=== PATIENT | female | born 1945 | race African-American/Black ===

== ENCOUNTER 2022-04-06 01:25 | Emergency (ER) | payer MEDICARE, SELFPAY ==
[2022-04-06] VITALS (20 sets, daily range): BP systolic 104–158; BP diastolic 61–86; PULSE 44–81; RESP 13–20; TEMP 37; O2SAT 97–100
--- NOTE | ~2022-04-06 | US_ITS ---
EXAMINATION: US venous doppler [facility] DATE: 04/06/2022 07:42 INDICATION: Lower limb swelling TECHNIQUE: Grayscale ultrasound images without and with compression and Doppler ultrasound images of the left lower extremity veins were obtained. COMPARISON: None. FINDINGS: The visualized portions of left common femoral vein, profunda (deep) femoral vein, femoral vein, popl iteal vein, posterior tibial veins, gastrocnemius vein and greater saphenous vein outflow are patent. The left peroneal veins were unable be identified likely due to body habitus. IMPRESSION: 1. No deep venous thrombosis in the left lower limb. Reviewed, dictated and finalized at location A.
--- NOTE | 2022-04-06 01:45 | ECG_ITS ---
Measurements Intervals Only Rate: 45 P: VA: 0 QRS: -1 QRSD: 114 T: 19 QT: 454 QTc: 395 Interpretive Statements JUNCTIONAL RHYTHM INTRAVENTRICULAR CONDUCTION DELAY Electronically Signed On 04-06-2022 11:40:00 CDT by Channing Simons M.D.
--- NOTE | 2022-04-06 04:55 | ED.GENADULT ---
HPI - General Adult General Chief complaint: Extremity Problem,Nontraumatic Stated complaint: bilateral extremity edema and pain Time Seen by Provider: 04/06/22 03:38 History of Present Illness HPI narrative: This is a 76-year-old female, with past medical history of diabetes, who presents the emergency department complaining of left leg tenderness and swelling and vaginal bleeding. She states she noted left leg tenderness and swelling yesterday evening. She states this happens off and on and does not know any history of DVT. During transportation from her rehab facility, there was noted vaginal bleeding. Patient states that she has noted bleeding on 1 pad but has not passed clots, felt lightheaded or short of breath. She denies bleeding from anywhere else. She has not had abnormal vaginal bleeding in the past. Related Data Home Medications Medication Instructions Recorded Confirmed albuterol sulfate 90 mcg/actuation inhalation 04/06/22 aerosol inhaler budesonide 160 mcg-glycopyr 9 inh inhalation 04/06/22 mcg-formot 4.8 mcg/actuation HFA inhaler (Calix) capsaicin 0.025 % topical cream applic topical 04/06/22 empagliflozin 25 mg tablet mg 04/06/22 (Jardiance) fluoxetine 60 mg tablet mg 04/06/22 fluticasone propionate 50 intranasal 04/06/22 mcg/actuation nasal spray,suspension gabapentin 300 mg capsule mg 04/06/22 insulin glargine 100 unit/mL (3 unit subcut 04/06/22 mL) subcutaneous pen (Lantus Solostar U-100 Insulin) insulin lispro 100 unit/mL 04/06/22 subcutaneous solution (Humalog U-100 Insulin) montelukast 10 mg tablet mg 04/06/22 nystatin 100,000 unit/gram topical topical 04/06/22 ointment ondansetron 4 mg disintegrating mg 04/06/22 tablet sennosides 8.6 mg-docusate sodium PO 04/06/22 50 mg tablet (Senna-S) simvastatin 40 mg tablet mg 04/06/22 telmisartan 20 mg tablet mg 04/06/22 Allergies Allergy/AdvReac Type Severity Reaction Status Date / Time aspirin Allergy Nausea and Verified 04/06/22 01:45 Vomiting celecoxib Allergy Unknown Verified 04/06/22 01:59 codeine Allergy Unknown Verified 04/06/22 01:59 lisinopril Allergy Unknown Verified 04/06/22 01:59 metformin Allergy Unknown Verified 04/06/22 01:59 Review of Systems Review of Systems: CONSTITUTIONAL: Denies fever, chills, or sweats. EYES: Denies visual changes, redness, or discharge. ENT: Denies rhinorrhea, congestion, sore throat, or otalgia. CARDIOVASCULAR: Denies chest pain, palpitations, or edema. RESPIRATORY: Denies cough or dyspnea. GASTROINTESTINAL: Denies abdominal pain, nausea, vomiting, or diarrhea. GENITOURINARY: Vaginal bleeding denies dysuria or hematuria. SKIN: Denies rash or itching. MUSCULOSKELETAL: Left leg swelling denies back pain, joint pain, or myalgia. NEUROLOGIC: Denies headache, numbness, dizziness, or weakness. PSYCHIATRIC: Denies anxiety or depression. [facility] Past Medical History Medical History (Updated 04/06/22 @ 07:48 by Tyrese Palma MD) No significant past medical history Surgical History Surgical History (Updated 08/22/19 @ 20:28 by Marshall Tafoya) No history of previous surgery Social History Social History (Updated 08/22/19 @ 20:25 by Marshall Tafoya) Smoking status: Unknown if ever smoked Additional living arrangements comments: Pt lives at [facility]. Exam Narrative: GENERAL: Well-appearing, well-nourished, and in no acute distress. HEAD: Normocephalic, atraumatic. EYES: PERRLA and EOMI. ENT: Nares clear, no rhinorrhea or epistaxis. Mucous membranes moist. Oropharynx without tonsillar hypertrophy exudate or other lesions. NECK: Supple. No adenopathy or masses. No carotid bruits or JVD CHEST: Clear to auscultation. No respiratory distress. No wheezes rales or rhonchi HEART: Regular rate and rhythm. No murmur heard. Normal peripheral pulses. ABDOMEN: Soft, nontender, nondistended, normal active bowel cristy
[2022-04-06 05:17] LABS: Basophils Percent Auto 0.4 % (0.2-1.2); Eosinophils Absolute Auto 0.2 K/mm3 (0-0.3); Eosinophils Percent Auto 2.1 % (0-4.4); Hematocrit 33.7 % (37.0-47.0); Hemoglobin 10.3 g/dL (12.0-15.0); Immature Granulocyte Absolute 0.02 K/mm3 (0.00-0.031); Immature Granulocyte Percent A 0.2 % (0-0.5); Lymphocytes Absolute Auto 1.23 K/mm3 (0.9-3.2); Lymphocytes Percent Auto 15.2 % (18.3-44.2); Mean Corpuscular HGB Conc 30.6 g/dl (32-36); Mean Corpuscular Volume 94.9 fl (80-100); Mean Platelet Volume 11.8 fl (7.4-10.4); Monocytes Absolute Auto 0.7 K/mm3 (0.1-0.6); Monocytes Percent Auto 8.3 % (2.6-8.5); Neutrophils Percent Auto 73.8 % (45.5-73.1); Platelet Count Result 163 k/mm3 (150-375); Red Blood Count 3.55 M/mm3 (4.2-5.4); Red Cell Distribution Width 18.9 % (11.5-14.5); White Blood Count 8.1 K/mm3 (4.5-10.0)
[2022-04-06 05:28] LABS: INR 1.2; Prothrombin Time 14.4 Seconds (11.1-14.7)
[2022-04-06 05:29] LABS: Partial Thromboplastin Time 26.8 SECONDS (22.3-36.8)
[2022-04-06 05:57] LABS: Alanine Aminotransferase 19 U/L (6-35); Albumin Level 3.3 g/dL (3.5-5.1); Alkaline Phosphatase 88 U/L (38-126); Anion Gap 6 mmol/L (8-16); Aspartate Amino Transferase 33 U/L (14-36); Bilirubin,Total 0.7 mg/dL (0.2-1.3); Blood Urea Nitrogen 31 mg/dL (7-17); Calcium 8.4 mg/dL (8.4-10.2); Carbon Dioxide 29 mmol/L (22-30); Chloride 104 mmol/L (98-107); Estimated CRCL calculation 39 ml/min; Estimated Glomerular Filt Rate 41; Glucose 114 mg/dL (65-110); Magnesium 2.3 mg/dL (1.6-2.3); Potassium 4.9 mmol/L (3.4-5.0); Sodium 139 mmol/L (137-145)
[2022-04-06 06:02] LABS: D Dimer 3.46 ug/mL (<0.48)
--- NOTE | 2022-04-06 07:26 | PC.NURSE ---
Pt to ultrasound.
--- NOTE | 2022-04-06 09:30 | PC.NURSE ---
Dr. Matamoros at bedside for pelvic exam. Tech Milagros assisting with exam.
--- NOTE | 2022-04-06 09:51 | PC.NURSE ---
Dr. Matamoros at bedside to discuss results and plan with pt and daughter. Pt will follow up with OB tomorrow outpatient.
--- NOTE | 2022-04-06 09:57 | PC.NURSE ---
[facility]. Nurse made aware of results and plan to follow up with OB tomorrow.
--- NOTE | 2022-04-06 10:09 | PC.NURSE ---
Pt's daughter willing to take pt home with help of getting her in car. Pt is oxygen dependent but has no portable oxygen to travel home with. EMS called for transport.
--- NOTE | 2022-04-06 10:37 | PC.NURSE ---
Pt resting on stretcher with call light in reach. Pt awaiting EMS arrival for transport back to rehab facility.
== END 2022-04-06 12:52 ==
PROVIDERS: Preventive Medicine Aerospace Medicine; Emergency Provider Emergency Medicine; PCP Family Medicine
DX: M79.89 Other specified soft tissue disorders (principal); N93.9 Abnormal uterine and vaginal bleeding, unspecified; Z79.4 Long term (current) use of insulin; Z79.899 Other long term (current) drug therapy; I45.9 Conduction disorder, unspecified
CPT/HCPCS: 36415; 80053; 83735; 85025; 85380; 85610; 85730; 86850; 86900; 86901; 93005; 93971; 99284

== ENCOUNTER 2022-04-12 00:26 | Day surgery (SDC) | payer MEDICARE, SELFPAY ==
[2022-04-06 15:13] VITALS: BMI 49.3
--- NOTE | 2022-04-06 15:46 | PC.NURSE ---
PRE-OP INSTRUCTIONS, PLEASE READ CAREFULLY Report to the Outpatient Waiting Room, entrance under the green pavilion located off [facility], at time _1000_ on date _04/12/22_. OR Time: _1200_. - You and your visitor will be asked a series of questions to screen for COVID 19 for your protection. - Only one visitor is allowed at this time. - The patient visitor is requested to leave or wait in car when not with patient. - A mask is required within the hospital. Patients may have clear liquids (water, carbonated beverages, clear teas, apple juice) until 3 hours prior to surgery (0900 AM) with a maximum of 20 ounces. - No food from midnight until time of surgery Take the following medications with a SIP of water the morning of surgery: _FLUOXETINE, BREZTRI INHALER, GABAPENTIN, PAIN MED, ALBUTEROL INHALER & NASAL SPRAY IF NEEDED__HOLD INSULIN AND JARDIANCE AM OF SURGERY Medications to discontinue per physician ____N/A , Date to take last dose Please no make-up, nail marshallese, hairspray, perfume, deodorant, or body powder the day of surgery. No jewelry (including any body piercings) or valuables the day of surgery, leave them at home. Please take a shower or bath the night before, or the morning of, surgery with an antibacterial soap. Wear comfortable, loose fitting clothing. Children are encouraged to wear pajamas. - Jewelry must be removed prior to entering the operating room. Rings and piercings that are not removed may be cut off. - The hospital will not accept responsibility for valuables. - Please leave all valuables, including medications, at home the day of surgery. If you are going home after surgery, a licensed non cdl driver must drive you home. - NO public transportation without another adult. - We recommend that an adult stay with you for 24 hours following discharge. - We also recommend that you do not drive, make important decision, drink alcoholic beverages, or take any drugs that were not prescribed by your health care provider for at least 24 hours after your discharge time. Follow any additional instructions given to you from your surgeon. If you or anyone in your household have experienced Covid symptoms in the past week, please notify your surgeon or the nurse liaison at the phone number below for possible testing. Instructions faxed to _[facility] - ATT: KYLIE Griffin_and asked if any additional questions and then verbalized understanding. Patient advised to call surgeon office or pre surgery nurse liaison [phone] if any additional questions.
[2022-04-12] VITALS (7 sets, daily range): BP systolic 128–150; BP diastolic 58–78; PULSE 55–81; RESP 14–20; TEMP 36.1–36.8; O2SAT 100
--- NOTE | 2022-04-12 06:51 | PM.IMHP ---
H&P: HPI History of Present Illness Date/Time: 04/12/22 06:51 Chief Complaint: Postmenopausal bleed Narrative: A 76-year-old female who [facility]. Was complaining of vaginal bleeding. Her hemoglobin was stable. [facility] Past Medical History Medical History No significant past medical history Surgical History Surgical History No history of previous surgery Social History Social History Smoking status: Former smoker Second hand tobacco smoke exposure: No Additional smoking assessment comments: DAUGHTER STATES PT SMOKED 1PK/DAY/MANY YEARS/QUIT 2017~ Alcohol intake: former Drinks per week: 6 Alcohol use details: DAUGHTER STATES 6 BEERS/WEEK UP UNTIL ENTERING [facility] Substance use: never Living arrangements: other Additional living arrangements comments: [facility] [phone] Spiritual care concerns: No Meds Home Medications and Allergies Home Medications Medication Instructions Recorded Confirmed Type albuterol sulfate 90 mcg/actuation 2 inh inhalation QID PRN Wheezing 04/06/22 04/06/22 History aerosol inhaler budesonide 160 mcg-glycopyr 9 2 inh inhalation BID 04/06/22 04/06/22 History mcg-formot 4.8 mcg/actuation HFA inhaler (Breztri Aerosphere) cholecalciferol (vitamin D3) 1,250 1,250 mcg PO WEEKLY 04/06/22 04/06/22 History mcg (50,000 unit) capsule cholecalciferol (vitamin D3) 50 50 mcg PO DAILY 04/06/22 04/06/22 History mcg (2,000 unit) tablet empagliflozin 25 mg tablet 25 mg QAM 04/06/22 04/06/22 History (Jardiance) fluoxetine 60 mg tablet 60 mg QAM 04/06/22 04/06/22 History fluticasone propionate 50 1 spray intranasal QAM 04/06/22 04/06/22 History mcg/actuation nasal spray,suspension gabapentin 300 mg capsule 300 mg TID 04/06/22 04/06/22 History insulin glargine 100 unit/mL (3 20 unit subcut HS 04/06/22 04/06/22 History mL) subcutaneous pen (Lantus Solostar U-100 Insulin) insulin lispro 100 unit/mL See Rx Instructions .Route .COMPLEX 04/06/22 04/06/22 History subcutaneous solution (Humalog U-100 Insulin) latanoprost 0.005 % eye drops 1 drp EACH EYE QPM 04/06/22 04/06/22 History montelukast 10 mg tablet 10 mg QAM 04/06/22 04/06/22 History nystatin 100,000 unit/gram topical See Rx Instructions .Route .COMPLEX 04/06/22 04/06/22 History ointment ondansetron 4 mg disintegrating 4 mg QID PRN Nausea 04/06/22 04/06/22 History tablet oxycodone 5 mg tablet 5 mg Q6H PRN Pain 04/06/22 04/06/22 History sennosides 8.6 mg-docusate sodium 1 tab-cap PO BID 04/06/22 04/06/22 History 50 mg tablet (Senna-S) simvastatin 40 mg tablet 40 mg HS 04/06/22 04/06/22 History telmisartan 20 mg tablet 20 mg QAM 04/06/22 04/06/22 History Allergies Allergy/AdvReac Type Severity Reaction Status Date / Time aspirin Allergy Nausea and Verified 04/06/22 15:08 Vomiting celecoxib Allergy Unknown Verified 04/06/22 15:08 codeine Allergy N/V Verified 04/06/22 15:08 lisinopril Allergy Unknown Verified 04/06/22 15:08 metformin Allergy Unknown Verified 04/06/22 15:08 acetaminophen [From Tylenol] AdvReac ELEVATED Verified 04/06/22 15:09 LIVER ENZMES Assessment and Plan Assessment and plan (1) Postmenopausal bleeding: Code(s): N95.0 - Postmenopausal bleeding Status: Acute Plan Hysteroscopy/dilatation and curettage
--- NOTE | 2022-04-12 06:53 | WPDHPUPDATE1 ---
History and Physical Update Update Date/Time: 04/12/22 06:53 History and Physical has been reviewed, including an updated exam of the patient. There are NO changes in the patient's condition. Risks, benefits, and alternatives have been discussed and questions answered. Patient agrees to proceed with procedure.
[2022-04-12] MEDS: LACTATED RINGERS 1,000 ML 30 ML IV CONT (11:00)
[2022-04-12 11:53] LABS: Glucose Point of Care 98 mg/dl (65-105)
--- NOTE | 2022-04-12 11:53 | WPDANESEPPF ---
Anes - Initial Pre Proc Eval Procedure: Operation Date: 04/12/22 12:00 Proposed Procedures p Hysteroscopy Dilation and Curettage - Lester Herndon MD Date/Time: 04/12/22 11:53 Surgeon: Lester Herndon MD Pre Op Diagnosis: post menopausal bleeding Patient Data Age: 76 Gender: F Height: 1.68 m Weight: 148.5 kg Last Vital Signs Temp 36.1 C L 04/12/22 10:41 Pulse 55 L 04/12/22 10:41 Resp 20 04/12/22 10:41 BP 140/67 04/12/22 10:41 Pulse Ox 100 04/12/22 10:41 O2 Del Method Nasal Cannula 04/12/22 10:41 O2 Flow Rate 2.5 04/12/22 10:41 Allergies Allergy/AdvReac Type Severity Reaction Status Date / Time aspirin Allergy Nausea and Verified 04/12/22 11:08 Vomiting celecoxib Allergy Unknown Verified 04/12/22 11:08 codeine Allergy N/V Verified 04/12/22 11:08 lisinopril Allergy Unknown Verified 04/12/22 11:08 metformin Allergy Unknown Verified 04/12/22 11:08 acetaminophen [From Tylenol] AdvReac ELEVATED Verified 04/12/22 11:08 LIVER ENZMES Home Medications Medication Instructions Recorded Confirmed Type albuterol sulfate 90 mcg/actuation 2 inh inhalation QID PRN Wheezing 04/06/22 04/12/22 History aerosol inhaler budesonide 160 mcg-glycopyr 9 2 inh inhalation BID 04/06/22 04/12/22 History mcg-formot 4.8 mcg/actuation HFA inhaler (Breztri Aerosphere) cholecalciferol (vitamin D3) 1,250 1,250 mcg PO WEEKLY 04/06/22 04/12/22 History mcg (50,000 unit) capsule cholecalciferol (vitamin D3) 50 50 mcg PO DAILY 04/06/22 04/12/22 History mcg (2,000 unit) tablet empagliflozin 25 mg tablet 25 mg QAM 04/06/22 04/12/22 History (Jardiance) fluoxetine 60 mg tablet 60 mg QAM 04/06/22 04/12/22 History fluticasone propionate 50 1 spray intranasal QAM 04/06/22 04/12/22 History mcg/actuation nasal spray,suspension gabapentin 300 mg capsule 300 mg TID 04/06/22 04/12/22 History insulin glargine 100 unit/mL (3 20 unit subcut HS 04/06/22 04/12/22 History mL) subcutaneous pen (Lantus Solostar U-100 Insulin) insulin lispro 100 unit/mL See Rx Instructions .Route .COMPLEX 04/06/22 04/12/22 History subcutaneous solution (Humalog U-100 Insulin) latanoprost 0.005 % eye drops 1 drp EACH EYE QPM 04/06/22 04/12/22 History montelukast 10 mg tablet 10 mg QAM 04/06/22 04/12/22 History nystatin 100,000 unit/gram topical See Rx Instructions .Route .COMPLEX 04/06/22 04/12/22 History ointment ondansetron 4 mg disintegrating 4 mg QID PRN Nausea 04/06/22 04/12/22 History tablet oxycodone 5 mg tablet 5 mg Q6H PRN Pain 04/06/22 04/12/22 History sennosides 8.6 mg-docusate sodium 1 tab-cap PO BID 04/06/22 04/12/22 History 50 mg tablet (Senna-S) simvastatin 40 mg tablet 40 mg HS 04/06/22 04/12/22 History telmisartan 20 mg tablet 20 mg QAM 04/06/22 04/12/22 History Patient hx anesthesia problems: none Family hx anesthesia problems: none Results Review: All pre-operative results and documents have been reviewed as part of the pre-operative evaluation. [facility] Past Medical History Medical History (Updated 04/12/22 @ 11:54 by Brady Rodriguez MD) COPD (chronic obstructive pulmonary disease) LORENZO (obstructive sleep apnea) Requires oxygen therapy Surgical History Surgical History No history of previous surgery Social History Social History Smoking status: Former smoker Second hand tobacco smoke exposure: No Additional smoking assessment comments: DAUGHTER STATES PT SMOKED 1PK/DAY/MANY YEARS/QUIT 2016~ Alcohol intake: former Drinks per week: 6 Alcohol use details: DAUGHTER STATES 6 BEERS/WEEK UP UNTIL ENTERING [facility] Substance use: never Living arrangements: other Additional living arrangements comments: [facility] [phone] Spiritual care concerns: No Anes - Eval Final
[2022-04-12] MEDS: LIDOCAINE HCL 1% PF 30 ML VIAL INFILTRATE (12:13)
--- NOTE | 2022-04-12 12:29 | W.PM.PROC2 ---
Procedure Note - Detailed Date of Procedure 04/12/22 Pre-op Diagnosis post menopausal bleeding Post-op Diagnosis Other (Uterine polyps) Procedure Performed Hysteroscopy/dilatation curettage/polypectomy Surgeon Lester Herndon MD Anesthesia MAC and Local Indications This 76-year-old fdc patient with postmenopausal bleeding Findings Several clot seen in the uterus making it difficult to see. Some small polyps were noted. Description of Procedure The patient was prepped draped in the normal sterile fashion placed in dorsal lithotomy position. Under excellent IV sedation weighted speculum placed in posterior fornix vagina. Anterior lip of the cervix grasped with a single-tooth tenaculum. 2.5cc of 1% xylocaine anesthesia placed at 2, 4, 8, 10:00 a.m. of the cervix. Uterus sounded to 12cm. Serial dilatation with fragmented dilators performed followed by passage of the 5mm visualizing hysteroscope. Normal saline was used as visualizing medium. There are a lot of clots and blood noted in the uterus and some polypoid lesions. Polyps were grasped with polyp forceps and then the uterus was scraped over the entire 360 G is a until a good grating sound was heard. When no further tissue removed the instruments were withdrawn. The patient tolerated procedure well. All sponge, needle, instrument counts were correct. There were no immediate complications. She did have some irregular heart rate during the procedure but was hemodynamically stable throughout. I explained to her daughter that she would probably be helped by a seeing a smoke control supervisor in the future. Estimated Blood Loss 5 Drains No Packing No Pathology Yes Complications No immediate complications Condition Stable Disposition PACU
[2022-04-12] MEDS: fentaNYL CITRATE INJ (*CRX) 100 MCG/2 ML VIAL 25 MCG IV PUSH ×2 (12:49→12:55)
[2022-04-12 13:00] LABS: Glucose Point of Care 86 mg/dl (65-105)
--- NOTE | 2022-04-12 13:14 | WPDANESPN ---
Anes - Prog Note Post-Op Date/Time: 04/12/22 13:14 Cardiovascular status: normal Respiratory status: normal Airway patency: baseline Mental status: baseline Post-Op hydration status: normal Vital Signs: Last Vital Signs Temp 36.8 C 04/12/22 12:28 Pulse 75 04/12/22 13:00 Resp 14 04/12/22 13:00 BP 141/78 H 04/12/22 13:00 Pulse Ox 100 04/12/22 13:00 O2 Del Method Nasal Cannula 04/12/22 13:00 O2 Flow Rate 2 04/12/22 13:00 Pain Score (VAS): 0 I/O: Intake & Output 04/11/22 04/12/22 04/12/22 23:59 07:59 15:59 Intake Total 50 Balance 50 04/12/22 04/12/22 11:00 12:58 POC Capillary Glucose 98 86 Patient Feedback: Patient satisfied with anesthetic care. Other Findings: Pt. noted to have ventricular pauses intra-op about 3sec. Otherwise stable throughout. D/W Dr. Mcelroy, pt and daughter about need for primary care and cardiac follow-up as out pt.
--- NOTE | 2022-04-12 15:44 | SUR.PHASEII ---
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 per dispatch ambulane is in route. 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 ambulance is due to arrive at 1615 per dispatch
--- NOTE | 2022-04-12 15:47 | SUR.PHASEII ---
1400 pt is ready for discharge sitting in chair daughter in room.
--- NOTE | 2022-04-12 16:56 | SUR.PHASEII ---
1649 [facility] spoke with yon sherman. pt doing ok. 1654 ems left with patient
--- NOTE | 2022-04-12 16:59 | SUR.PHASEII ---
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
== END 2022-04-12 16:55 | disposition home or self-care (01) ==
PROVIDERS: PCP Family Medicine; Visit Provider Obstetrics & Gynecology
PROC: 0U5B8ZZ Destruction of Endometrium, Via Natural or Artificial Opening Endoscopic (ICD-10-PCS; CPT 58563; principal; 2022-04-12 12:00)
DX: N95.0 Postmenopausal bleeding (principal); N84.0 Polyp of corpus uteri; Z79.4 Long term (current) use of insulin; Z79.51 Long term (current) use of inhaled steroids; J44.9 Chronic obstructive pulmonary disease, unspecified; G47.33 Obstructive sleep apnea (adult) (pediatric); Z99.81 Dependence on supplemental oxygen; Z87.891 Personal history of nicotine dependence; E66.01 Morbid (severe) obesity due to excess calories; Z68.43 Body mass index [BMI] 50.0-59.9, adult
CPT/HCPCS: 58558; 82948; 88305; A9270; J2704; J3010; J7030; J7120

== ENCOUNTER 2022-04-14 12:16 | Inpatient (IN) | payer MEDICARE, SELFPAY ==
[2022-04-14] VITALS (54 sets, daily range): BP systolic 93–155; BP diastolic 41–70; PULSE 54–101; RESP 12–29; TEMP 36.3–37.6; O2SAT 95–100; BMI 61.3
--- NOTE | ~2022-04-14 | CT_ITS ---
EXAMINATION: CTA chest PE protocol DATE: 04/14/2022 17:14 INDICATION: Dyspnea w/ elevated d-dimer TECHNIQUE: Computed tomography angiography (CTA) of the chest was performed with 200 mL Omnipaque-350 intravenous contrast timed to evaluate the pulmonary arteries. Coronal maximum intensity projection 3D-reconstructions were created by the technologist. The dose-length product (DLP) was 1816.09 mGy-cm . Automated exposure control and iterative reconstruction technique were employed. COMPARISON: X-ray chest, same date. FINDINGS: Lung parenchyma and airways: Paraseptal emphysematous change. Bibasilar atelectasis/scar. Pleura: Small volume bilateral pleural fluid collections. Thoracic inlet, axillae and chest wall: Left axillary surgical clips. Thoracic aorta: Mild ectasia and arch calcification. Mediastinum: Central pulmonary arterial dilation as can be seen with pulmonary artery hypertension. S ubcentimeter mediastinal and hilar lymph nodes. Moderate hiatal hernia. Heart and pericardium: Cardiomegaly. Coronary artery calcifications: Heavy. Upper abdomen: Prior surgery at the GE junction. Bones: No acute osseous finding. Changes of ankylosing spondylitis. Pulmonary arteries: Study quality: Limited by bolus timing which required repeat injection as well as motion artifact, overall adequate. No pulmonary emboli detected. IMPRESSION: No CT evidence of acute pulmonary embolus. Reviewed, dictated and finalized at location K.
--- NOTE | ~2022-04-14 | XR_ITS ---
EXAMINATION: XR chest 2V DATE: 04/14/2022 13:06 INDICATION: Shortness of breath. TECHNIQUE: Frontal and lateral views of the chest were obtained. COMPARISON: None. FINDINGS: There is mild atelectasis versus scarring in left midlung zone. There is a diffuse intersti tial pattern, consistent with mild pulmonary edema. There are small pleural effusions. No pneumothora x. The heart size is normal. There are surgical clips in left axilla. IMPRESSION: 1. Mild pulmonary edema. 2. Small pleural effusions. 3. Mild atelectasis/scarring in left midlung zone. Reviewed, dictated and finalized at location A.
--- NOTE | ~2022-04-14 | US_ITS ---
US venous doppler [facility] DATE: 04/15/2022 11:01 INDICATION: Bilateral leg pain, swelling TECHNIQUE: Real-time and color flow imaging and Doppler analysis of the veins of the lower extremitie s COMPARISON: None FINDINGS: There is limited visualization of the calf veins due to body habitus. Only one right perone al vein was imaged on the right, left peroneal veins not visualized. Otherwise there is spontaneous and phasic flow and normal augmentation and color flow signal and norm al compression of the deep veins of both lower extremities. IMPRESSION: No deep venous thrombosis of the lower extremities is demonstrated Reviewed, dictated and finalized at Location A. Reviewed, dictated and finalized at location B.
--- NOTE | 2022-04-14 12:38 | ECG_ITS ---
Measurements Intervals [place] Rate: 67 P: 42 AK: 189 QRS: 1 QRSD: 89 T: 36 QT: 382 QTc: 404 Interpretive Statements SINUS RHYTHM WITH OCCASIONAL ECTOPIC PREMATURE COMPLEXES LOW QRS VOLTAGE [QRS DEFLECTION < 0.5/1.0 mV IN LIMB/CHEST LEADS] COMPARED TO ECG 04/06/2022 01:50:05 THE PATIENT IS NO LONGER IN A JUNCTIONAL RHYTHM Electronically Signed On 04-14-2022 18:36:34 CDT by Ena Simmons M.D.
[2022-04-14 12:54] LABS: Basophils Percent Auto 0.5 % (0.2-1.2); Eosinophils Absolute Auto 0.1 K/mm3 (0-0.3); Eosinophils Percent Auto 0.8 % (0-4.4); Hematocrit 34.2 % (37.0-47.0); Hemoglobin 10.3 g/dL (12.0-15.0); Immature Granulocyte Absolute 0.03 K/mm3 (0.00-0.031); Immature Granulocyte Percent A 0.5 % (0-0.5); Lymphocytes Absolute Auto 1.71 K/mm3 (0.9-3.2); Lymphocytes Percent Auto 27.4 % (18.3-44.2); Mean Corpuscular HGB Conc 30.1 g/dl (32-36); Mean Corpuscular Hemoglobin 28.5 pg (26-34); Mean Corpuscular Volume 94.5 fl (80-100); Mean Platelet Volume 11.2 fl (7.4-10.4); Monocytes Absolute Auto 0.7 K/mm3 (0.1-0.6); Monocytes Percent Auto 11.9 % (2.6-8.5); Neutrophils Absolute Auto 3.7 K/mm3 (1.3-6.7); Neutrophils Percent Auto 58.9 % (45.5-73.1); Nucleated Red Blood Cells Perc 0.3 % (0.0-0.2); Platelet Count Result 234 k/mm3 (150-375); Red Blood Count 3.62 M/mm3 (4.2-5.4); Red Cell Distribution Width 18.9 % (11.5-14.5); White Blood Count 6.2 K/mm3 (4.5-10.0)
[2022-04-14 13:11] LABS: Alanine Aminotransferase 18 U/L (6-35); Albumin Level 3.2 g/dL (3.5-5.1); Alkaline Phosphatase 80 U/L (38-126); Anion Gap 6 mmol/L (8-16); Aspartate Amino Transferase 41 U/L (14-36); Bilirubin,Total 0.5 mg/dL (0.2-1.3); Blood Urea Nitrogen 23 mg/dL (7-17); Calcium 8.5 mg/dL (8.4-10.2); Carbon Dioxide 26 mmol/L (22-30); Chloride 103 mmol/L (98-107); Estimated CRCL calculation 41 ml/min; Estimated Glomerular Filt Rate 41; Glucose 120 mg/dL (65-110); Potassium 5.4 mmol/L (3.4-5.0); Sodium 135 mmol/L (137-145)
[2022-04-14 14:49] LABS: NT Pro B Type Natriuretic Pept 799 pg/mL (5-100)
[2022-04-14] MEDS: INSULIN HUMAN REGULAR (*BKC) 100 UNITS/ML 10 UNITS IV PUSH (14:49)
[2022-04-14] MEDS: DEXTROSE 50% 25 GM/50 ML SYRINGE IV PUSH (14:49)
[2022-04-14 14:54] LABS: Troponin I 0.061 ng/mL (0.000-0.034)
[2022-04-14 14:55] LABS: Glucose Point of Care 96 mg/dl (65-105)
[2022-04-14 15:35] LABS: Glucose Point of Care 114 mg/dl (65-105)
[2022-04-14 15:42] LABS: SARS-CoV-2 RNA PCR Positive
[2022-04-14] MEDS: CLOPIDOGREL BISULFATE 300 MG TABLET PO (15:50)
--- NOTE | 2022-04-14 16:00 | PC.NURSE ---
Lokelar instructions not to administer within two hours of other PO medications. Pt also had PO plavix ordered. Dr. Layne made aware; ordered to give plavix at this time over [facility].
[2022-04-14 16:25] LABS: D Dimer 6.31 ug/mL (<0.48)
--- NOTE | 2022-04-14 16:40 | PC.NURSE ---
Dr. Layne at bedside to discuss results and treatment plan with pt.
[2022-04-14 17:51] LABS: Troponin I 0.071 ng/mL (0.000-0.034)
--- NOTE | 2022-04-14 18:16 | PC.NURSE ---
Pt's daughter updated.
[2022-04-14] MEDS: SODIUM ZIRCONIUM CYCLOSILICATE 10 GM POWD.PACK PO (18:41)
--- NOTE | 2022-04-14 20:12 | ED.GENADULT ---
HPI - General Adult General Chief complaint: Shortness of Breath/Dyspnea Stated complaint: SOB Time Seen by Provider: 04/14/22 13:02 History of Present Illness HPI narrative: This is a 76-year-old female presenting to ED with shortness of breath. Patient recently had a D&C on 04/12. Since then she has felt weak, tired and has a productive cough. Patient typically seen with a walker has been too weak to stand. She is currently living at a rehab facility. The patient has been vaccinated against COVID-19. She denies fever, chills. She notes she has lower extremity edema which is normal for her. Patient has been compliant with all of her medi Related Data Home Medications Medication Instructions Recorded Confirmed albuterol sulfate 90 mcg/actuation 2 inh inhalation QID PRN Wheezing 04/06/22 04/12/22 aerosol inhaler budesonide 160 mcg-glycopyr 9 2 inh inhalation BID 04/06/22 04/12/22 mcg-formot 4.8 mcg/actuation HFA inhaler (Breztri SIMIphere) cholecalciferol (vitamin D3) 1,250 1,250 mcg PO WEEKLY 04/06/22 04/12/22 mcg (50,000 unit) capsule cholecalciferol (vitamin D3) 50 50 mcg PO DAILY 04/06/22 04/12/22 mcg (2,000 unit) tablet empagliflozin 25 mg tablet 25 mg QAM 04/06/22 04/12/22 (Jardiance) fluoxetine 60 mg tablet 60 mg QAM 04/06/22 04/12/22 fluticasone propionate 50 1 spray intranasal QA 04/06/22 04/12/22 mcg/actuation nasal spray,suspension gabapentin 300 mg capsule 300 mg TID 04/06/22 04/12/22 insulin glargine 100 unit/mL (3 20 unit subcut HS 04/06/22 04/12/22 mL) subcutaneous pen (Lantus Solostar U-100 Insulin) insulin lispro 100 unit/mL See Rx Instructions .Route .COMPLEX 04/06/22 04/12/22 subcutaneous solution (Humalog U-100 Insulin) latanoprost 0.005 % eye drops 1 drp EACH EYE QPM 04/06/22 04/12/22 montelukast 10 mg tablet 10 mg QAM 04/06/22 04/12/22 nystatin 100,000 unit/gram topical See Rx Instructions .Route .COMPLEX 04/06/22 04/12/22 ointment ondansetron 4 mg disintegrating 4 mg QID PRN Nausea 04/06/22 04/12/22 tablet oxycodone 5 mg tablet 5 mg Q6H PRN Pain 04/06/22 04/12/22 sennosides 8.6 mg-docusate sodium 1 tab-cap PO BID 04/06/22 04/12/22 50 mg tablet (Senna-S) simvastatin 40 mg tablet 40 mg HS 04/06/22 04/12/22 telmisartan 20 mg tablet 20 mg QAM 04/06/22 04/12/22 Lasix 20 mg 04/14/22 capsaicin 0.025 % topical cream applic topical 04/14/22 colchicine 0.6 mg tablet mg 04/14/22 insulin glargine 100 unit/mL (3 unit subcut 04/14/22 mL) subcutaneous pen (Lantus Solostar U-100 Insulin) potassium chloride 10 mEq meq PO 04/14/22 tablet,extended release(part/cryst) prednisone 10 mg tablet 30 mg 04/14/22 telmisartan 20 mg tablet mg 04/14/22 Allergies Allergy/AdvReac Type Severity Reaction Status Date / Time aspirin Allergy Nausea and Verified 04/14/22 12:44 Vomiting celecoxib Allergy Unknown Verified 04/14/22 12:44 codeine Allergy N/V Verified 04/14/22 12:44 lisinopril Allergy Unknown Verified 04/14/22 12:44 metformin Allergy Unknown Verified 04/14/22 12:44 acetaminophen [From Tylenol] AdvReac ELEVATED Verified 04/14/22 12:44 LIVER ENZMES Review of Systems Review of Systems: CONSTITUTIONAL: Denies night sweats. EYES: No eye pain ENT: Denies rhinorrhea CARDIOVASCULAR: Denies palpitations RESPIRATORY: Denies hemoptysis GASTROINTESTINAL: Denies hematemesis GENITOURINARY: Denies hematuria. SKIN: Denies rash MUSCULOSKELETAL: Denies myalgia. NEUROLOGIC: Denies weakness. PSYCHIATRIC: Denies delusions PMFSH Past Medical History Medical History COPD (chronic obstructive pulmonary disease) Obesity LORENZO (obstructive sleep apnea) Requires oxygen therapy Surgical History Surgical History (Updated 04/14/22 @ 20:14 by Saqib Layne MD) H/O dilation and curettage No history of previous surgery Social History Social History (Reviewed 04/14/22 @ 20:14 by Saqib Burr
--- NOTE | 2022-04-14 20:34 | PM.IMHP ---
H&P: HPI History of Present Illness Date/Time: 04/14/22 20:34 Chief Complaint: Shortness of breath Narrative: this is a 76-year-old female patient who resides at [facility] previously known as [facility]. the patient has a history of COPD and chronically wears oxygen at 2 L per nasal cannula. The patient recently had a D and C on 04/12/2022 for postmenopausal hemorrhage and was found to have polyps. The patient stated she is currently staying at the assisted for rehab. The patient has been vaccinated against COVID-19. The patient typically uses a walker and she has been too weak to stand. She does have increased swelling in the lower extremities and denies any history of CHF. Her H&H is 10.3 and 34.2 with no current H&H to compare with this value. Potassium is 5.4. Sodium is 135. D-dimer 6.31. Troponin 0.061 and 0.071. BNP 799. the patient was positive for COVID Chest CT no CT evidence of acute pulmonary embolus. Chest x-ray was read as mild pulmonary edema. Small pleural effusions. Mild atelectasis / scarring and left midlung zone. The patient was given D50, regular insulin and lokema for the hyperkalemia. She was also given Plavix because of the elevated troponin. The patient denies any chest pain at this time. The patient recently had venous Dopplers on 04/06/2022 which showed no deep vein thrombosis in the left lower limb. The patient is being admitted to inpatient services on the date of service of 04/14/2022. Review of Systems Review of Systems: See HPI All systems reviewed & are unremarkable except as noted in HPI and below Constitutional: Constitutional: Reports as per HPI and Reports no additional constitutional complaints Eyes: Eyes: Reports as per HPI and Reports no additional eye complaints ENT: Reports system reviewed and no additional complaints, except as documented and Reports Normal hearing present Cardiovascular: Cardiovascular: Reports no additional cardiovascular complaints Respiratory: Respiratory: Reports no additional respiratory complaints and Reports no additional respiratory complaints Gastrointestinal: Gastrointestinal: Reports as per HPI and Reports no additional gastrointestinal complaints Musculoskeletal: Musculoskeletal: Reports no additional musculoskeletal complaints Integumentary/Breasts: Skin/Breast: Reports system reviewed and no additional complaints, except as docu and Reports as per HPI Neurologic: Reports system reviewed and no additional complaints, except as documented, Reports as per HPI and Reports Normal hearing present Psychiatric: Psychiatric: Reports no additional psychiatric complaints and Reports as per HPI Endocrine: Endocrine: Reports no additional endocrine complaints Hematologic/Lymphatic: Hematologic/Lymphatic: Reports no additional hematologic/lymphatic complaints Allergic/Immunologic: Allergic/Immunologic: Reports no additional allergic/immunologic complaints [facility] Past Medical History Medical History (Updated 04/14/22 @ 21:33 by Margaret Calderon NP) COPD (chronic obstructive pulmonary disease) CRF (chronic renal failure) DM2 (diabetes mellitus, type 2) Glaucoma Gout HTN (hypertension), malignant Hyperlipidemia Neuropathy Obesity LORENZO (obstructive sleep apnea) Requires oxygen therapy Surgical History Surgical History (Updated 04/14/22 @ 20:38 by Margaret Calderon NP) Cataract extraction status H/O dilation and curettage History of section, classical Total knee replacement status edmund Family History Family History (Updated 04/14/22 @ 20:40 by Margaret Calderon NP) Mother Kidney failure Hypertension Heart disease Acute myocardial infarction Father Hypertension Sibling Diabetes mellitus Social History Social History (Updated 04/14/22 @ 21:35 by Margaret Calderon NP) Social History: she is . She had 2 daughters but 1 daughter was murdered at the age of 34 by her Own . the
--- NOTE | 2022-04-14 21:18 | PC.NURSE ---
Pts son in law called. RN asked to if daughter in law was avaliable to speak as well due to pts son in law not being on HIPPA contact list. PTs daughter on speaker phone with son in law. Son in law stated I am trying to stay calm here. I am unhappy. Stated he knows Calvin Fernandez [employer] SUPER[employer] and CNO Corina Contreras and that he spoke with Calvin earlier and was assured that they would get excellent care. Pts son in law states he is going to call Calvin soon if pt does not get a bed and get something to drink. RN explained to pts son in law and daughter that she had asked about getting the patient a bed but was waiting to hear from house player. RN explained to family that pt is covid positive and at times this can take time to get a private room. RN also explained she was unaware that the patient needed something to drink, but would go in there and get her something. Pts son in law and daughter verbalized understanding. RN went directly into pts room and explained call light to patient to call out if needed. Pt verbalized understanding.
--- NOTE | 2022-04-14 21:38 | ADMGEN ---
This patient, Mary Lou Santo, was admitted to IMU Room 211-01 at 2135. Patient/family oriented to hospital policies and general routines including ID bracelet, bed and alarms, visiting hours, pain management, procedures, bathroom and other care routines, personal items, smoking policy, room service/diet, and visiting hours. Information on how to activate the Rapid Response Team has been discussed. Patient/Family are encouraged to report perceived risks to care and to ask questions if they do not understand what they are told or what they should do.
[2022-04-14 22:46] LABS: Basophils Percent Auto 0.5 % (0.2-1.2); Eosinophils Absolute Auto 0.1 K/mm3 (0-0.3); Eosinophils Percent Auto 0.9 % (0-4.4); Hematocrit 33.1 % (37.0-47.0); Immature Granulocyte Absolute 0.02 K/mm3 (0.00-0.031); Immature Granulocyte Percent A 0.3 % (0-0.5); Lymphocytes Absolute Auto 1.86 K/mm3 (0.9-3.2); Mean Corpuscular HGB Conc 30.2 g/dl (32-36); Mean Corpuscular Hemoglobin 28.6 pg (26-34); Mean Corpuscular Volume 94.6 fl (80-100); Monocytes Percent Auto 17.7 % (2.6-8.5); Neutrophils Absolute Auto 2.8 K/mm3 (1.3-6.7); Neutrophils Percent Auto 48.6 % (45.5-73.1); Platelet Count Result 230 k/mm3 (150-375); Red Cell Distribution Width 18.8 % (11.5-14.5); White Blood Count 5.8 K/mm3 (4.5-10.0)
[2022-04-14 22:57] LABS: INR 1.2; Prothrombin Time 14.8 Seconds (11.1-14.7)
[2022-04-14 23:00] LABS: Alanine Aminotransferase 15 U/L (6-35); Anion Gap 2 mmol/L (8-16); Aspartate Amino Transferase 40 U/L (14-36); Blood Urea Nitrogen 22 mg/dL (7-17); Calcium 8.3 mg/dL (8.4-10.2); Carbon Dioxide 29 mmol/L (22-30); Chloride 103 mmol/L (98-107); Estimated CRCL calculation 41 ml/min; Estimated Glomerular Filt Rate 41; Glucose 110 mg/dL (65-110); Potassium 4.5 mmol/L (3.4-5.0); Sodium 134 mmol/L (137-145)
[2022-04-14] MEDS: BARICITINIB 2 MG TABLET PO (23:00)
[2022-04-15] VITALS (13 sets, daily range): BP systolic 128–149; BP diastolic 60–75; PULSE 57–80; RESP 16–24; TEMP 36.1–36.9; O2SAT 90–100
--- NOTE | 2022-04-15 | ECHO_ITS ---
Patient Info Name: Mary Lou Satno Age: 76 years : 1945 Gender: Female Ht: 64 in Wt: 333 lbs BSA: 2.71 m2 HR: 66 bpm BP: 128 / 70 mmHg Heart Rhythm: Sinus Rhythm Exam Date: 04/15/2022 11:44 AM Exam Location: [facility] Patient Status: Outpatient Admit Date: 04/14/2022 Staff Ordering Physician: Margaret Calderon NP Room Service Server: Marshall Lucas, SAHIL, RT Attending Provider: Bret Martin MD Referring Physician: Kvng SAGE; Exam Type: CA echo doppler color flow Study Info Indications R60.0 - Localized edema Complete two-dimensional, color flow and Doppler transthoracic echocardiogram is performed. Summary 1. Complete two-dimensional, color flow and Doppler transthoracic echocardiogram is performed. 2. Normal left ventricular size with mild concentric hypertrophy. Good systolic function of all segments. Estimated ejection fraction visually is 55-60%, 50% calculated. Grade 2 diastolic dysfunction is present. 3. Global longitudinal strain is-13%, moderately decreased, consistent with a degree of systolic dysfunction. 4. Mild left atrial enlargement. 5. No significant valve disease. 6. Normal sinus rhythm. 7. Technically difficult study due to body habitus. Left Ventricle Left ventricular chamber dimension is normal. Left ventricular systolic function is normal, estimated at 55-60%. There is mildly increased left ventricular wall thickness. Left ventricular septal wall motion is normal. The left ventricular diastolic function is grade II diastolic dysfunction. Global longitudinal strain is moderately elevated at -13 %. Right Ventricle Right ventricular chamber dimension is normal. Right ventricular systolic function is normal. Left Atria Left atrial chamber dimension is mildly enlarged. Right Atria Right atrial chamber dimension is normal. Aortic Valve The aortic valve is trileaflet. There is no aortic valve sclerosis. There is no aortic valve stenosis. There is no aortic valve regurgitation. Pulmonic Valve The pulmonic valve is normal. There is no pulmonic valve stenosis. There is trace pulmonic regurgitation. Mitral Valve The mitral valve has normal leaflets. There is no mitral valve stenosis. There is trace mitral valve regurgitation. Tricuspid Valve The tricuspid valve leaflets are normal. There is no significant tricuspid valve stenosis. There is no tricuspid valve regurgitation. No pulmonary hypertension, estimated pulmonary arterial systolic pressure is Empty. Pericardium/Pleural The pericardium appears normal. There is no pericardial effusion. Inferior Vena Cava Normal inferior vena cava with >50% collapse upon inspiration consistent with Empty right atrial pressure, Empty. Aorta The aortic root size at the sinus of Valsalva is borderline dilated. The prox ascending aorta size is normal. Left Ventricular Outflow Tract Name Value Normal LVOT 2D LVOT Diameter 2.1 cm LVOT Doppler LVOT Peak Gradient 5 mmHg LVOT Mean Gradient 3 mmHg LVOT VTI 28
[2022-04-15 06:19] LABS: Basophils Percent Auto 0.7 % (0.2-1.2); Hematocrit 35.6 % (37.0-47.0); Hemoglobin 10.7 g/dL (12.0-15.0); Immature Granulocyte Absolute 0.02 K/mm3 (0.00-0.031); Immature Granulocyte Percent A 0.5 % (0-0.5); Lymphocytes Percent Auto 32.2 % (18.3-44.2); Mean Corpuscular HGB Conc 30.1 g/dl (32-36); Mean Corpuscular Hemoglobin 28.8 pg (26-34); Mean Platelet Volume 11.2 fl (7.4-10.4); Monocytes Absolute Auto 0.1 K/mm3 (0.1-0.6); Monocytes Percent Auto 3.2 % (2.6-8.5); Neutrophils Absolute Auto 2.6 K/mm3 (1.3-6.7); Neutrophils Percent Auto 63.4 % (45.5-73.1); Platelet Count Result 240 k/mm3 (150-375); Red Blood Count 3.71 M/mm3 (4.2-5.4); Red Cell Distribution Width 19.1 % (11.5-14.5)
[2022-04-15 06:29] LABS: Hemoglobin A1C 6.3 % (<5.7)
[2022-04-15 06:34] LABS: INR 1.1; Prothrombin Time 14.1 Seconds (11.1-14.7)
[2022-04-15 06:39] LABS: Alanine Aminotransferase 17 U/L (6-35); Albumin Level 3.1 g/dL (3.5-5.1); Alkaline Phosphatase 79 U/L (38-126); Anion Gap 7 mmol/L (8-16); Aspartate Amino Transferase 40 U/L (14-36); Bilirubin,Total 0.6 mg/dL (0.2-1.3); Blood Urea Nitrogen 21 mg/dL (7-17); Calcium 8.5 mg/dL (8.4-10.2); Carbon Dioxide 24 mmol/L (22-30); Chloride 105 mmol/L (98-107); Estimated CRCL calculation 48 ml/min; Estimated Glomerular Filt Rate 48; Glucose 132 mg/dL (65-110); Potassium 5.6 mmol/L (3.4-5.0); Sodium 136 mmol/L (137-145)
[2022-04-15 08:12] LABS: Glucose Point of Care 136 mg/dl (65-105)
[2022-04-15] MEDS: BARICITINIB 2 MG TABLET PO (09:37)
[2022-04-15] MEDS: ENOXAPARIN 40 MG/0.4 ML SYRINGE SUB-Q (09:37)
[2022-04-15 12:40] LABS: Glucose Point of Care 118 mg/dl (65-105)
--- NOTE | 2022-04-15 13:01 | PM.IMPN ---
Progress Note: A&P Assessment and Plan (1) COVID: Code(s): U07.1 - COVID-19 Status: Acute Assessment and Plan: - patient is chronically on oxygen at 2 L at home for her COPD. - She was started on Decadron. - Since she is on her home oxygen level I started her on olumiant and have not started her on remdesivir. - Continue with droplet and contact isolation (2) COPD (chronic obstructive pulmonary disease): Code(s): J44.9 - Chronic obstructive pulmonary disease, unspecified Status: Acute Assessment and Plan: - albuterol inhaler - home inhalers once her meds have been verified - continue with Singulair once her homes medications are verified - she was started on Decadron (3) DM2 (diabetes mellitus, type 2): Code(s): E11.9 - Type 2 diabetes mellitus without complications Status: Acute Assessment and Plan: Monitor blood sugar continue insulin. (4) HTN (hypertension), malignant: Code(s): I10 - Essential (primary) hypertension Status: Chronic Assessment and Plan: - her blood pressure is low tonight so I am holding her anti hypertensive medications stent (5) Hyperkalemia: Code(s): E87.5 - Hyperkalemia Status: Acute Assessment and Plan: - the patient was treated as per hyperkalemia protocol and I will recheck her BMP tonight - daily BMP - patient is also on Lasix -monitor (6) Hyperlipidemia: Code(s): E78.5 - Hyperlipidemia, unspecified Status: Acute Assessment and Plan: - continue simvastatin (7) Neuropathy: Code(s): G62.9 - Polyneuropathy, unspecified Status: Acute Assessment and Plan: - continue with gabapentin (8) Gout: Code(s): M10.9 - Gout, unspecified Status: Acute Assessment and Plan: continue with home medication. Patient stated she is that she tries to control with diet she tries to avoid cheese and no longer drinks beer (9) CRF (chronic renal failure): Code(s): N18.9 - Chronic kidney disease, unspecified Status: Acute Assessment and Plan: patient is at her baseline. (10) Glaucoma: Code(s): H40.9 - Unspecified glaucoma Status: Acute Assessment and Plan: Continue with home eye drops (11) Elevated troponin: Code(s): R77.8 - Other specified abnormalities of plasma proteins Status: Acute Assessment and Plan: patient has no complaints of any chest pain. troponin levels are pretty flat could be related to her renal status (12) Generalized weakness: Code(s): R53.1 - Weakness Status: Acute Assessment and Plan: - patient is in a rehab facility. - May consider PT OT before she goes back to rehab facility. Subjective Date/time seen: 04/15/22 13:01 Currently on 2-3 L nasal cannula. Patient is on 2liters at home. Appears to be doing fine from respiratory status Exam Const: General: cooperative, comfortable, no acute distress, well developed, awake, Physically active and ill appearing Nutritional Appearance: obese and edematous Orientation/consciousness: oriented to person, oriented to place, oriented to time and patient oriented x3 Limitations: no limitations HENMT: Head: normal to inspection, No palpable skull fracture present, normocephalic and atraumatic Ears: hearing grossly normal bilaterally and external ears normal General nose exam: Normal external nose present and Normal nares present Eyes: General: appearance normal, both eyes and all related structures Alignment and Position: alignment normal Periorbital: periorbital findings normal Eyelids: eyelids normal Sclera: sclerae normal Pupils: Equal, round and reactive pupils present EOM: EOMs intact bilaterally Neck: Neck: normal visual inspection, full ROM, trachea midline and supple Chest: Chest palpation & inspection: normal inspection of the chest Resp: Effort & Inspection: normal respiratory effort Aus
[2022-04-15 17:46] LABS: Glucose Point of Care 152 mg/dl (65-105)
--- NOTE | 2022-04-15 20:55 | PC.NURSE ---
This patient, Mary Lou Santo, was transferred to [240 ] on 04/15/22 at 2055. Personal belongings sent with patient. Report given to [asif marvin ]. Appropriate documentation sent with patient.
[2022-04-15] MEDS: INSULIN GLARGINE (*BKC) 100 UNITS/ML 20 UNITS SUB-Q (22:53)
[2022-04-15] MEDS: GABAPENTIN 300 MG CAPSULE PO (22:53)
[2022-04-15] MEDS: SIMVASTATIN 20 MG TABLET 40 MG PO (22:53)
[2022-04-15] MEDS: LATANOPROST 0.005% OP SOLN 2.5 ML BTL 1 DROP EACH EYE (22:53)
[2022-04-15 23:16] LABS: Glucose Point of Care 119 mg/dl (65-105)
[2022-04-16] VITALS (12 sets, daily range): BP systolic 132–156; BP diastolic 55–64; PULSE 51–85; RESP 18–20; TEMP 35.9–36.9; O2SAT 96–100
[2022-04-16 05:49] LABS: Basophils Percent Auto 0.4 % (0.2-1.2); Eosinophils Percent Auto 0.4 % (0-4.4); Hematocrit 33.1 % (37.0-47.0); Hemoglobin 10.2 g/dL (12.0-15.0); Immature Granulocyte Absolute 0.02 K/mm3 (0.00-0.031); Immature Granulocyte Percent A 0.4 % (0-0.5); Lymphocytes Absolute Auto 2.12 K/mm3 (0.9-3.2); Lymphocytes Percent Auto 46.6 % (18.3-44.2); Mean Corpuscular HGB Conc 30.8 g/dl (32-36); Mean Corpuscular Hemoglobin 28.7 pg (26-34); Mean Platelet Volume 11.4 fl (7.4-10.4); Monocytes Absolute Auto 0.6 K/mm3 (0.1-0.6); Monocytes Percent Auto 13.6 % (2.6-8.5); Neutrophils Absolute Auto 1.8 K/mm3 (1.3-6.7); Neutrophils Percent Auto 38.6 % (45.5-73.1); Platelet Count Result 297 k/mm3 (150-375); Red Blood Count 3.56 M/mm3 (4.2-5.4); Red Cell Distribution Width 18.6 % (11.5-14.5); White Blood Count 4.6 K/mm3 (4.5-10.0)
[2022-04-16 05:50] LABS: INR 1.1
[2022-04-16 05:53] LABS: Alanine Aminotransferase 16 U/L (6-35); Aspartate Amino Transferase 45 U/L (14-36); Estimated CRCL calculation 50 ml/min; Estimated Glomerular Filt Rate 53; Potassium 4.6 mmol/L (3.4-5.0)
[2022-04-16 08:41] LABS: Glucose Point of Care 86 mg/dl (65-105)
[2022-04-16] MEDS: FLUoxetine HCL 20 MG CAPSULE 60 MG PO (09:32)
[2022-04-16] MEDS: EMPAGLIFLOZIN 25 MG TABLET PO (09:34)
[2022-04-16] MEDS: GABAPENTIN 300 MG CAPSULE PO ×3 (09:34→17:00)
[2022-04-16] MEDS: predniSONE 10 MG TABLET 30 MG PO (09:34)
[2022-04-16] MEDS: COLCHICINE 0.6 MG TABLET PO (09:34)
[2022-04-16] MEDS: SENNA/DOCUSATE SODIUM TABLET 1 TAB PO ×2 (09:34→17:00)
[2022-04-16] MEDS: MONTELUKAST SODIUM 10 MG TABLET PO (09:34)
[2022-04-16] MEDS: TELMISARTAN 20 MG TABLET PO (09:35)
[2022-04-16] MEDS: FLUTICASONE PROPIONATE 0.05% NA SPR 16 GM BTL (*BKC) 1 SPRAY NASAL (09:36)
[2022-04-16] MEDS: FUROSEMIDE 20 MG TABLET BY MOUTH (09:36)
[2022-04-16] MEDS: ENOXAPARIN 40 MG/0.4 ML SYRINGE SUB-Q (09:36)
[2022-04-16] MEDS: CAPSAICIN 0.025% CREAM 60 GM TUBE 1 APPLIC TOPICAL (09:37)
[2022-04-16] MEDS: FLUTICASONE/UMECLIDIN/VILANTER 100-62.5-25 MCG ELLIPTA 1 PUFF INHALATION (09:45)
[2022-04-16] MEDS: BARICITINIB 2 MG TABLET PO (10:58)
[2022-04-16] MEDS: MICONAZOLE NITRATE 2% CREAM 30 GM TUBE 1 APPLIC TOPICAL ×3 (10:58→17:01)
--- NOTE | 2022-04-16 11:32 | PM.IMPN ---
Progress Note: A&P Assessment and Plan (1) COVID: Code(s): U07.1 - COVID-19 Status: Acute Assessment and Plan: - patient is chronically on oxygen at 2 L at home for her COPD. - She was started on Decadron. - Since she is on her home oxygen level I started her on olumiant and have not started her on remdesivir. - Continue with droplet and contact isolation (2) COPD (chronic obstructive pulmonary disease): Code(s): J44.9 - Chronic obstructive pulmonary disease, unspecified Status: Acute Assessment and Plan: - albuterol inhaler - home inhalers once her meds have been verified - continue with Singulair once her homes medications are verified - she was started on Decadron (3) DM2 (diabetes mellitus, type 2): Code(s): E11.9 - Type 2 diabetes mellitus without complications Status: Acute Assessment and Plan: Monitor blood sugar continue insulin. (4) HTN (hypertension), malignant: Code(s): I10 - Essential (primary) hypertension Status: Chronic Assessment and Plan: - her blood pressure is low tonight so I am holding her anti hypertensive medications stent (5) Hyperkalemia: Code(s): E87.5 - Hyperkalemia Status: Acute Assessment and Plan: - the patient was treated as per hyperkalemia protocol and I will recheck her BMP tonight - daily BMP - patient is also on Lasix -monitor (6) Hyperlipidemia: Code(s): E78.5 - Hyperlipidemia, unspecified Status: Acute Assessment and Plan: - continue simvastatin (7) Neuropathy: Code(s): G62.9 - Polyneuropathy, unspecified Status: Acute Assessment and Plan: - continue with gabapentin (8) Gout: Code(s): M10.9 - Gout, unspecified Status: Acute Assessment and Plan: continue with home medication. Patient stated she is that she tries to control with diet she tries to avoid cheese and no longer drinks beer (9) CRF (chronic renal failure): Code(s): N18.9 - Chronic kidney disease, unspecified Status: Acute Assessment and Plan: patient is at her baseline. (10) Glaucoma: Code(s): H40.9 - Unspecified glaucoma Status: Acute Assessment and Plan: Continue with home eye drops (11) Elevated troponin: Code(s): R77.8 - Other specified abnormalities of plasma proteins Status: Acute Assessment and Plan: patient has no complaints of any chest pain. troponin levels are pretty flat could be related to her renal status (12) Generalized weakness: Code(s): R53.1 - Weakness Status: Acute Assessment and Plan: - patient is in a rehab facility. - May consider PT OT before she goes back to rehab facility. Subjective Date/time seen: 04/16/22 11:32 No complaints Exam Const: General: cooperative, comfortable, no acute distress, well developed, awake, Physically active and ill appearing Nutritional Appearance: obese and edematous Orientation/consciousness: oriented to person, oriented to place, oriented to time and patient oriented x3 Limitations: no limitations HENMT: Head: normal to inspection, No palpable skull fracture present, normocephalic and atraumatic Ears: hearing grossly normal bilaterally and external ears normal General nose exam: Normal external nose present and Normal nares present Eyes: General: appearance normal, both eyes and all related structures Alignment and Position: alignment normal Periorbital: periorbital findings normal Eyelids: eyelids normal Sclera: sclerae normal Pupils: Equal, round and reactive pupils present EOM: EOMs intact bilaterally Neck: Neck: normal visual inspection, full ROM, trachea midline and supple Chest: Chest palpation & inspection: normal inspection of the chest Resp: Effort & Inspection: normal respiratory effort Auscultation: clear to auscultation bilaterally Percussion: percussion normal Cardio: Palpation: norm
[2022-04-16 11:58] LABS: Glucose Point of Care 91 mg/dl (65-105)
[2022-04-16 16:58] LABS: Glucose Point of Care 126 mg/dl (65-105)
[2022-04-16] MEDS: LATANOPROST 0.005% OP SOLN 2.5 ML BTL 1 DROP EACH EYE (17:01)
[2022-04-16] MEDS: SIMVASTATIN 20 MG TABLET 40 MG PO (19:50)
[2022-04-16] MEDS: INSULIN GLARGINE (*BKC) 100 UNITS/ML 20 UNITS SUB-Q (19:51)
[2022-04-16 20:52] LABS: Glucose Point of Care 174 mg/dl (65-105)
[2022-04-17] VITALS (13 sets, daily range): BP systolic 108–150; BP diastolic 51–73; PULSE 39–94; RESP 12–20; TEMP 36.1–37.1; O2SAT 94–100
[2022-04-17 06:23] LABS: Basophils Percent Auto 0.3 % (0.2-1.2); Eosinophils Percent Auto 0.3 % (0-4.4); Hematocrit 32.8 % (37.0-47.0); Hemoglobin 10.2 g/dL (12.0-15.0); Immature Granulocyte Absolute 0.01 K/mm3 (0.00-0.031); Immature Granulocyte Percent A 0.3 % (0-0.5); Lymphocytes Absolute Auto 1.48 K/mm3 (0.9-3.2); Lymphocytes Percent Auto 37.2 % (18.3-44.2); Mean Corpuscular HGB Conc 31.1 g/dl (32-36); Mean Corpuscular Hemoglobin 28.3 pg (26-34); Mean Corpuscular Volume 90.9 fl (80-100); Mean Platelet Volume 11.6 fl (7.4-10.4); Monocytes Absolute Auto 0.5 K/mm3 (0.1-0.6); Monocytes Percent Auto 12.8 % (2.6-8.5); Neutrophils Percent Auto 49.1 % (45.5-73.1); Nucleated Red Blood Cells Perc 0.5 % (0.0-0.2); Platelet Count Result 376 k/mm3 (150-375); Red Blood Count 3.61 M/mm3 (4.2-5.4); Red Cell Distribution Width 18.6 % (11.5-14.5)
[2022-04-17 06:30] LABS: INR 1.1; Prothrombin Time 13.5 Seconds (11.1-14.7)
[2022-04-17 06:39] LABS: Alanine Aminotransferase 16 U/L (6-35); Aspartate Amino Transferase 37 U/L (14-36); Estimated CRCL calculation 49 ml/min; Estimated Glomerular Filt Rate 53
[2022-04-17 07:36] LABS: Glucose Point of Care 98 mg/dl (65-105)
[2022-04-17] MEDS: FLUTICASONE PROPIONATE 0.05% NA SPR 16 GM BTL (*BKC) 1 SPRAY NASAL (08:24)
[2022-04-17] MEDS: MICONAZOLE NITRATE 2% CREAM 30 GM TUBE 1 APPLIC TOPICAL ×3 (08:24→17:32)
[2022-04-17] MEDS: CAPSAICIN 0.025% CREAM 60 GM TUBE 1 APPLIC TOPICAL (08:24)
[2022-04-17] MEDS: FLUoxetine HCL 20 MG CAPSULE 60 MG PO (08:25)
[2022-04-17] MEDS: FUROSEMIDE 20 MG TABLET BY MOUTH (08:25)
[2022-04-17] MEDS: EMPAGLIFLOZIN 25 MG TABLET PO (08:25)
[2022-04-17] MEDS: SENNA/DOCUSATE SODIUM TABLET 1 TAB PO ×2 (08:25→17:32)
[2022-04-17] MEDS: COLCHICINE 0.6 MG TABLET PO (08:26)
[2022-04-17] MEDS: GABAPENTIN 300 MG CAPSULE PO ×3 (08:27→17:32)
[2022-04-17] MEDS: MONTELUKAST SODIUM 10 MG TABLET PO (08:27)
[2022-04-17] MEDS: predniSONE 10 MG TABLET 30 MG PO (08:27)
[2022-04-17] MEDS: ENOXAPARIN 40 MG/0.4 ML SYRINGE SUB-Q (08:29)
[2022-04-17] MEDS: TELMISARTAN 20 MG TABLET PO (08:29)
[2022-04-17] MEDS: FLUTICASONE/UMECLIDIN/VILANTER 100-62.5-25 MCG ELLIPTA 1 PUFF INHALATION (08:44)
[2022-04-17] MEDS: BARICITINIB 2 MG TABLET PO (12:15)
[2022-04-17 12:19] LABS: Glucose Point of Care 121 mg/dl (65-105)
[2022-04-17 17:13] LABS: Glucose Point of Care 161 mg/dl (65-105)
[2022-04-17] MEDS: LATANOPROST 0.005% OP SOLN 2.5 ML BTL 1 DROP EACH EYE (17:32)
[2022-04-17 20:09] LABS: Glucose Point of Care 233 mg/dl (65-105)
[2022-04-17] MEDS: SIMVASTATIN 20 MG TABLET 40 MG PO (20:25)
[2022-04-17] MEDS: INSULIN GLARGINE (*BKC) 100 UNITS/ML 20 UNITS SUB-Q (20:26)
--- NOTE | 2022-04-17 22:25 | ECG_ITS ---
Measurements Intervals [place] Rate: 37 P: 58 [place]: 223 QRS: 10 QRSD: 97 T: 15 QT: 520 QTc: 412 Interpretive Statements MARKED SINUS BRADYCARDIA WITH FIRST DEGREE AV BLOCK LOW-VOLTAGE QRS LIMB LEADS ABNORMAL ECG COMPARED TO ECG 04/14/2022 12:45:53 SINUS BRADYCARDIA NOW PRESENT FIRST DEGREE AV BLOCK NOW PRESENT Electronically Signed On 04-18-2022 14:36:16 CDT by Colt Grimes M.D.
[2022-04-17 22:59] LABS: Anion Gap 7 mmol/L (8-16); Blood Urea Nitrogen 32 mg/dL (7-17); Calcium 8.2 mg/dL (8.4-10.2); Carbon Dioxide 27 mmol/L (22-30); Chloride 102 mmol/L (98-107); Estimated CRCL calculation 45 ml/min; Estimated Glomerular Filt Rate 48; Glucose 144 mg/dL (65-110); Potassium 4.5 mmol/L (3.4-5.0); Sodium 136 mmol/L (137-145)
[2022-04-18] VITALS (15 sets, daily range): BP systolic 132–156; BP diastolic 55–88; PULSE 40–122; RESP 16–22; TEMP 35.7–36.6; O2SAT 86–100
--- NOTE | 2022-04-18 01:49 | ECG_ITS ---
Measurements Intervals [place] Rate: 55 P: 25 NE: 225 QRS: 8 QRSD: 94 T: -6 QT: 489 QTc: 470 Interpretive Statements SINUS BRADYCARDIA WITH FIRST DEGREE AV BLOCK WITH OCCASIONAL ECTOPIC PREMATURE COMPLEXES AND PREMATURE VENTRICULAR CONTRACTIONS NONSPECIFIC ST ABNORMALITY PROLONGED QT INTERVAL ABNORMAL ECG COMPARED TO ECG 04/17/2022 22:36:00 ST (T WAVE) DEVIATION NOW PRESENT PROLONGED QT INTERVAL NOW PRESENT Electronically Signed On 04-18-2022 14:37:48 CDT by Colt Grimes M.D.
--- NOTE | 2022-04-18 02:14 | P.PNCROSS_ITS ---
Event Note Event Note Event Note: I was called to the patient's room for evaluation after patient became bradyca rdic with heart rate in the 40s blood pressure 100/68 saturating 98% on CPAP machine. Objective: Bradycardia junctional escape beats heart rate of still eating in the 30s to 40's subjective: I feel fine General: patient is laying in bed with CPAP on awake and alert. HEENT: Normocephalic, atraumatic, no JVD, TAMAR. cardiovascular: Heart sounds of low tone and intensity, no murmurs rubs or gallops. respiratory: Clear to auscultation bilaterally no wheezes rhonchi or crackles abdomen: Soft nontender nondistended no hepatosplenomegaly bowel sounds are present muscle skeletal: No edema, no cyanosis, no clubbing central nervous system: Awake alert oriented x3 cranial nerves 2-12 grossly intact no focal sensorimotor deficit. skin: Intact assessment and plan: 1. Sinus bradycardia with junctional escape beats: Transferred to IMU apply pacer pads: Cardiology consult. Supportive care.
--- NOTE | 2022-04-18 02:25 | PC.NURSE ---
Transferred to IMU room 213 due to decreased heart rate of 29. Attempted to call daughter left message to inform her of move and why.
--- NOTE | 2022-04-18 03:13 | PC.NURSE ---
This patient, Mary Lounaveen Santo, was received from [[id number]] on 04/18/22 at 0240. Patient/family oriented to unit policies and routines
[2022-04-18 04:48] LABS: Prothrombin Time 13.1 Seconds (11.1-14.7)
[2022-04-18 04:54] LABS: Alanine Aminotransferase 16 U/L (6-35); Aspartate Amino Transferase 42 U/L (14-36); Estimated CRCL calculation 49 ml/min; Estimated Glomerular Filt Rate 53; Potassium 4.4 mmol/L (3.4-5.0)
[2022-04-18 05:00] LABS: Basophils Percent Auto 0.2 % (0.2-1.2); Eosinophils Percent Auto 0.2 % (0-4.4); Hematocrit 32.1 % (37.0-47.0); Immature Granulocyte Absolute 0.02 K/mm3 (0.00-0.031); Immature Granulocyte Percent A 0.5 % (0-0.5); Lymphocytes Percent Auto 44.8 % (18.3-44.2); Mean Corpuscular HGB Conc 31.2 g/dl (32-36); Mean Corpuscular Hemoglobin 28.6 pg (26-34); Mean Corpuscular Volume 91.7 fl (80-100); Mean Platelet Volume 11.4 fl (7.4-10.4); Monocytes Absolute Auto 0.6 K/mm3 (0.1-0.6); Monocytes Percent Auto 13.9 % (2.6-8.5); Neutrophils Absolute Auto 1.7 K/mm3 (1.3-6.7); Neutrophils Percent Auto 40.4 % (45.5-73.1); Nucleated Red Blood Cells Perc 0.7 % (0.0-0.2); Platelet Count Result 384 k/mm3 (150-375); Red Cell Distribution Width 18.5 % (11.5-14.5); White Blood Count 4.2 K/mm3 (4.5-10.0)
[2022-04-18] MEDS: ATROPINE SULFATE 1 MG/10 ML SYRINGE IV PUSH (06:29)
[2022-04-18] MEDS: FLUTICASONE/UMECLIDIN/VILANTER 100-62.5-25 MCG ELLIPTA 1 PUFF INHALATION (08:04)
[2022-04-18 08:10] LABS: Glucose Point of Care 90 mg/dl (65-105)
[2022-04-18] MEDS: MONTELUKAST SODIUM 10 MG TABLET PO (10:01)
[2022-04-18] MEDS: ENOXAPARIN 40 MG/0.4 ML SYRINGE SUB-Q (10:01)
[2022-04-18] MEDS: FUROSEMIDE 20 MG TABLET BY MOUTH (10:02)
[2022-04-18] MEDS: COLCHICINE 0.6 MG TABLET PO (10:02)
[2022-04-18] MEDS: SENNA/DOCUSATE SODIUM TABLET 1 TAB PO (10:02)
[2022-04-18] MEDS: predniSONE 10 MG TABLET 30 MG PO (10:02)
[2022-04-18] MEDS: GABAPENTIN 300 MG CAPSULE PO ×3 (10:02→18:33)
[2022-04-18] MEDS: EMPAGLIFLOZIN 25 MG TABLET PO (10:03)
[2022-04-18] MEDS: MICONAZOLE NITRATE 2% CREAM 30 GM TUBE 1 APPLIC TOPICAL ×3 (10:13→18:33)
[2022-04-18] MEDS: FLUTICASONE PROPIONATE 0.05% NA SPR 16 GM BTL (*BKC) 1 SPRAY NASAL (10:13)
[2022-04-18] MEDS: CAPSAICIN 0.025% CREAM 60 GM TUBE 1 APPLIC TOPICAL (10:14)
[2022-04-18] MEDS: BARICITINIB 2 MG TABLET PO (10:14)
--- NOTE | 2022-04-18 10:47 | ECG_ITS ---
Measurements Intervals [place] Rate: 55 P: 60 IA: 221 QRS: -7 QRSD: 88 T: -14 QT: 433 QTc: 416 Interpretive Statements SINUS BRADYCARDIA WITH FIRST DEGREE AV BLOCK NONSPECIFIC ST ABNORMALITY BORDERLINE ECG COMPARED TO ECG 04/18/2022 01:57:38 PROLONGED QT INTERVAL NO LONGER PRESENT Electronically Signed On 04-18-2022 14:47:12 CDT by Colt Grimes M.D.
--- NOTE | 2022-04-18 11:02 | PM.IMPN ---
Progress Note: A&P Assessment and Plan (1) COVID: Code(s): U07.1 - COVID-19 Status: Acute Assessment and Plan: - patient is chronically on oxygen at 2 L at home for her COPD. - She was started on Decadron. - Since she is on her home oxygen level I started her on olumiant and have not started her on remdesivir. - Continue with droplet and contact isolation (2) COPD (chronic obstructive pulmonary disease): Code(s): J44.9 - Chronic obstructive pulmonary disease, unspecified Status: Acute Assessment and Plan: - albuterol inhaler - home inhalers once her meds have been verified - continue with Singulair once her homes medications are verified - she was started on Decadron (3) DM2 (diabetes mellitus, type 2): Code(s): E11.9 - Type 2 diabetes mellitus without complications Status: Acute Assessment and Plan: Monitor blood sugar continue insulin. (4) HTN (hypertension), malignant: Code(s): I10 - Essential (primary) hypertension Status: Chronic Assessment and Plan: - her blood pressure is low tonight so I am holding her anti hypertensive medications stent (5) Hyperkalemia: Code(s): E87.5 - Hyperkalemia Status: Acute Assessment and Plan: - the patient was treated as per hyperkalemia protocol and I will recheck her BMP tonight - daily BMP - patient is also on Lasix -monitor (6) Hyperlipidemia: Code(s): E78.5 - Hyperlipidemia, unspecified Status: Acute Assessment and Plan: - continue simvastatin (7) Neuropathy: Code(s): G62.9 - Polyneuropathy, unspecified Status: Acute Assessment and Plan: - continue with gabapentin (8) Gout: Code(s): M10.9 - Gout, unspecified Status: Acute Assessment and Plan: continue with home medication. Patient stated she is that she tries to control with diet she tries to avoid cheese and no longer drinks beer (9) CRF (chronic renal failure): Code(s): N18.9 - Chronic kidney disease, unspecified Status: Acute Assessment and Plan: patient is at her baseline. (10) Glaucoma: Code(s): H40.9 - Unspecified glaucoma Status: Acute Assessment and Plan: Continue with home eye drops (11) Elevated troponin: Code(s): R77.8 - Other specified abnormalities of plasma proteins Status: Acute Assessment and Plan: patient has no complaints of any chest pain. troponin levels are pretty flat could be related to her renal status (12) Generalized weakness: Code(s): R53.1 - Weakness Status: Acute Assessment and Plan: - patient is in a rehab facility. - May consider PT OT before she goes back to rehab facility. (13) Bradycardia: Code(s): R00.1 - Bradycardia, unspecified Status: Acute Assessment and Plan: Cardiology consult Subjective Date/time seen: 04/18/22 11:02 Bradycardia Overnite with heart rate in the low 40s. Asymptomatic. Exam Const: General: cooperative, comfortable, no acute distress, well developed, awake, Physically active and ill appearing Nutritional Appearance: obese and edematous Orientation/consciousness: oriented to person, oriented to place, oriented to time and patient oriented x3 Limitations: no limitations HENMT: Head: normal to inspection, No palpable skull fracture present, normocephalic and atraumatic Ears: hearing grossly normal bilaterally and external ears normal General nose exam: Normal external nose present and Normal nares present Eyes: General: appearance normal, both eyes and all related structures Alignment and Position: alignment normal Periorbital: periorbital findings normal Eyelids: eyelids normal Sclera: sclerae normal Pupils: Equal, round and reactive pupils present EOM: EOMs intact bilaterally Neck: Neck: normal visual inspection, full ROM, trachea midline and supple Chest: Chest palpation & inspection:
[2022-04-18 12:42] LABS: Glucose Point of Care 105 mg/dl (65-105)
--- NOTE | 2022-04-18 13:25 | PM.CNCAR ---
Assessment and Plan Assessment and plan (1) Sinus node dysfunction: Code(s): I49.5 - Sick sinus syndrome Status: Acute Assessment and Plan: Asymptomatic intermittent sinus bradycardia with transient junctional rhythm hemodynamically stable. She is not currently on AV joanne blocking agents which would explain her bradycardia. Barcitinib does not appear to be significantly associated bradycardia although remdesivir has been documented to contribute to bradycardia (she is not on the latter). Avoid AV joanne blocking agents. Patient does not require atropine or dopamine in left hemodynamically stable, symptomatic with heart rates sustained less than 35 beats per minute or with higher grade AV block. Monitor electrolytes closely keep potassium. No indication for permanent pacemaker implantation at this time, however, this remains a possibility in future. Continue telemetry with recommendations to follow. Depending on clinical course outpatient general service officer may be warranted. If unexplained symptomatic severe bradycardia and or high-grade AV block pacemaker implantation may be required at some point. Check TSH Repeat 12 lead EKG in a.m.. Monitor QT interval due to mild QT prolongation QTC 470. Avoid QT prolonging drugs. (2) Hyperkalemia: Code(s): E87.5 - Hyperkalemia Status: Acute Assessment and Plan: As above. She has had issues with hyperkalemia but it is not clear this is related to her bradycardia specifically. Consider alternative to telmisartan which may contribute to hyperkalemia. Management per primary service. (3) Elevated troponin: Code(s): R77.8 - Other specified abnormalities of plasma proteins Status: Acute Assessment and Plan: Mild flat troponin elevation, chronic kidney disease, COVID infection without ischemic symptoms. Patient has risk factors for underlying CAD but most likely type 2 infarction not acute coronary syndrome and/or plaque rupture. 2D echo reveals preserved LV systolic function EF 55-60% without clearly identified wall motion abnormalities although technically difficult study. (4) Hypertension associated with stage 3 chronic kidney disease due to type 2 diabetes mellitus: Code(s): E11.22 - Type 2 diabetes mellitus with diabetic chronic kidney disease; I12.9 - Hypertensive chronic kidney disease with stage 1 through stage 4 chronic kidney disease, or unspecified chronic kidney disease; N18.30 - Chronic kidney disease, stage 3 unspecified Status: Acute Assessment and Plan: Stable. Avoid symptomatic hypotension. Monitor renal function closely. (5) COVID: Code(s): U07.1 - COVID-19 Status: Acute Assessment and Plan: Continue management per primary service. (6) LORENZO on CPAP: Code(s): G47.33 - Obstructive sleep apnea (adult) (pediatric); Z99.89 - Dependence on other enabling machines and devices Status: Acute Assessment and Plan: Compliance with CPAP (7) Morbid obesity with BMI of 50.0-59.9, adult: Code(s): E66.01 - Morbid (severe) obesity due to excess calories; Z68.43 - Body mass index [BMI] 50.0-59.9, adult Status: Acute Assessment and Plan: Lifestyle modification History of Present Illness History of Present Illness Consult date/time: 04/18/22 13:25 Requesting physician: Ronaldo Henriquez MD Consult reason: Other (bradycardia) Reason For Visit: Dyspnea/weakness Narrative: Patient is a pleasant 76-year-old Afro-[place] female is a resident of senior care with past medical history significant for COPD on chronic 2 L nasal cannula, type 2 diabetes mellitus, hypertension, morbid obesity, LORENZO on CPAP, history of CKD stage 3 who underwent a D&C 04/12/2022 for postmenopausal hemorrhage with polyp removal. Patient is undergoing rehabilitation at the senior care typically gets around using a walker but then noted she was getting progressively weaker inability to stand on her
--- NOTE | 2022-04-18 13:40 | PC.NURSE ---
Dr. Grimes and Dr. Galindo are going to stop telmisartan/Micardis. Feels this could be contributing to patient Hyperkalemia.
[2022-04-18 18:06] LABS: Glucose Point of Care 142 mg/dl (65-105)
[2022-04-18] MEDS: LATANOPROST 0.005% OP SOLN 2.5 ML BTL 1 DROP EACH EYE (18:33)
[2022-04-18 21:00] LABS: Glucose Point of Care 208 mg/dl (65-105)
[2022-04-18] MEDS: SIMVASTATIN 20 MG TABLET 40 MG PO (21:48)
[2022-04-18] MEDS: INSULIN GLARGINE (*BKC) 100 UNITS/ML 20 UNITS SUB-Q (21:49)
[2022-04-19] VITALS (12 sets, daily range): BP systolic 123–131; BP diastolic 61–90; PULSE 40–53; RESP 14–22; TEMP 36.2–36.3; O2SAT 90–100
[2022-04-19 04:54] LABS: Basophils Percent Auto 0.4 % (0.2-1.2); Hematocrit 33.9 % (37.0-47.0); Hemoglobin 10.5 g/dL (12.0-15.0); Immature Granulocyte Absolute 0.03 K/mm3 (0.00-0.031); Immature Granulocyte Percent A 0.7 % (0-0.5); Lymphocytes Absolute Auto 2.07 K/mm3 (0.9-3.2); Lymphocytes Percent Auto 46.2 % (18.3-44.2); Mean Corpuscular Hemoglobin 28.8 pg (26-34); Mean Corpuscular Volume 93.1 fl (80-100); Mean Platelet Volume 11.4 fl (7.4-10.4); Monocytes Absolute Auto 0.6 K/mm3 (0.1-0.6); Monocytes Percent Auto 14.1 % (2.6-8.5); Neutrophils Absolute Auto 1.7 K/mm3 (1.3-6.7); Neutrophils Percent Auto 38.6 % (45.5-73.1); Nucleated Red Blood Cells Perc 0.4 % (0.0-0.2); Platelet Count Result 402 k/mm3 (150-375); Red Blood Count 3.64 M/mm3 (4.2-5.4); Red Cell Distribution Width 18.6 % (11.5-14.5); White Blood Count 4.5 K/mm3 (4.5-10.0)
[2022-04-19 05:30] LABS: Thyroid Stimulating Hormone Reflex 0.622 uIU/mL (0.465-4.68)
[2022-04-19 05:48] LABS: Alanine Aminotransferase 17 U/L (6-35); Aspartate Amino Transferase 37 U/L (14-36); Estimated CRCL calculation 49 ml/min; Estimated Glomerular Filt Rate 53
--- NOTE | 2022-04-19 07:44 | PCWOUND ---
WOCN NOTE Two nurses charted wound, with photo present, did not chart wound location or description. No photo found. Spoke to Tuesday RN, received report no wounds present. NO wound care assessment needed at this time.
[2022-04-19 07:50] LABS: Glucose Point of Care 86 mg/dl (65-105)
[2022-04-19] MEDS: MONTELUKAST SODIUM 10 MG TABLET PO (08:30)
[2022-04-19] MEDS: FUROSEMIDE 20 MG TABLET BY MOUTH (08:30)
[2022-04-19] MEDS: predniSONE 10 MG TABLET 30 MG PO (08:30)
[2022-04-19] MEDS: EMPAGLIFLOZIN 25 MG TABLET PO (08:30)
[2022-04-19] MEDS: CAPSAICIN 0.025% CREAM 60 GM TUBE 1 APPLIC TOPICAL (08:31)
[2022-04-19] MEDS: COLCHICINE 0.6 MG TABLET PO (08:31)
[2022-04-19] MEDS: GABAPENTIN 300 MG CAPSULE PO ×2 (08:31→13:03)
[2022-04-19] MEDS: SENNA/DOCUSATE SODIUM TABLET 1 TAB PO (08:31)
[2022-04-19] MEDS: FLUTICASONE PROPIONATE 0.05% NA SPR 16 GM BTL (*BKC) 1 SPRAY NASAL (08:31)
[2022-04-19] MEDS: MICONAZOLE NITRATE 2% CREAM 30 GM TUBE 1 APPLIC TOPICAL ×2 (08:31→13:06)
[2022-04-19] MEDS: ENOXAPARIN 40 MG/0.4 ML SYRINGE SUB-Q (08:31)
[2022-04-19] MEDS: ALBUTEROL SULFATE (*SP) INHALER 2 PUFF INHALATION (09:12)
[2022-04-19] MEDS: FLUTICASONE/UMECLIDIN/VILANTER 100-62.5-25 MCG ELLIPTA 1 PUFF INHALATION (09:12)
[2022-04-19] MEDS: BARICITINIB 2 MG TABLET PO (10:24)
--- NOTE | 2022-04-19 10:53 | PM.DS ---
DS: Admitting Diagnosis Discharge Date April 19, 2022 Admitting Diagnosis COVID DS: Discharge Diagnosis Discharge Diagnosis (1) COVID: Code(s): U07.1 - COVID-19 Status: Acute Assessment and Plan: -patient was admitted with COVID pneumonia patient is chronically on oxygen at 2 L at home for her COPD. -she was started on standard COVID treatment. She did exceptionally well. -has she has done exceptionally well on 2liters of oxygen which is her home oxygen. -patient will be discharged to skilled facility. (2) COPD (chronic obstructive pulmonary disease): Code(s): J44.9 - Chronic obstructive pulmonary disease, unspecified Status: Acute Assessment and Plan: Continue her home medications for COPD on discharge. Continue oxygen at 2 L. (3) DM2 (diabetes mellitus, type 2): Code(s): E11.9 - Type 2 diabetes mellitus without complications Status: Acute Assessment and Plan: Monitor blood sugar continue insulin. (4) HTN (hypertension), malignant: Code(s): I10 - Essential (primary) hypertension Status: Chronic Assessment and Plan: - her blood pressure is low tonight so I am holding her anti hypertensive medications stent (5) Hyperkalemia: Code(s): E87.5 - Hyperkalemia Status: Acute Assessment and Plan: This essentially resolved. (6) Hyperlipidemia: Code(s): E78.5 - Hyperlipidemia, unspecified Status: Acute Assessment and Plan: - continue simvastatin (7) Neuropathy: Code(s): G62.9 - Polyneuropathy, unspecified Status: Acute Assessment and Plan: - continue with gabapentin (8) Gout: Code(s): M10.9 - Gout, unspecified Status: Acute Assessment and Plan: continue with home medication. Patient stated she is that she tries to control with diet she tries to avoid cheese and no longer drinks beer (9) CRF (chronic renal failure): Code(s): N18.9 - Chronic kidney disease, unspecified Status: Acute Assessment and Plan: patient is at her baseline. (10) Glaucoma: Code(s): H40.9 - Unspecified glaucoma Status: Acute Assessment and Plan: Continue with home eye drops (11) Elevated troponin: Code(s): R77.8 - Other specified abnormalities of plasma proteins Status: Acute Assessment and Plan: No further workup indicated at this time. (12) Generalized weakness: Code(s): R53.1 - Weakness Status: Acute Assessment and Plan: - patient is in a rehab facility. - May consider PT OT before she goes back to rehab facility. (13) Bradycardia: Code(s): R00.1 - Bradycardia, unspecified Status: Acute Assessment and Plan: Cardiology felt this is most likely related to electrolyte abnormalities and hypoxia. No intervention required. She will follow Cardiology on discharge DS: Summary Hospital Course Hospital Course: See discharge planning diagnoses. Time Spent with Patient Time attestation: Total time spent providing and/or coordinating discharge services: Exam Const: General: cooperative, comfortable, no acute distress, well developed, awake, Physically active and ill appearing Nutritional Appearance: obese and edematous Orientation/consciousness: oriented to person, oriented to place, oriented to time and patient oriented x3 Limitations: no limitations HENMT: Head: normal to inspection, No palpable skull fracture present, normocephalic and atraumatic Ears: hearing grossly normal bilaterally and external ears normal General nose exam: Normal external nose present and Normal nares present Eyes: General: appearance normal, both eyes and all related structures Alignment and Position: alignment normal Periorbital: periorbital findings normal Eyelids: eyelids normal Sclera: sclerae normal Pupils: Equal, round and reactive pupils present EOM: EOMs intact bilaterally Neck: Neck: normal
[2022-04-19 11:28] LABS: Glucose Point of Care 120 mg/dl (65-105)
== END 2022-04-19 13:08 | DRG 177 ==
LOC: ANHED 20:18 → ANHIMU 04-15 01:40 → ANH2MED 04-15 21:38 → ANHIMU 04-18 02:59
PROVIDERS: Emergency Medicine; Internal Medicine Cardiovascular Disease; Nurse Practitioner; Physician Assistant; Admitting Provider Internal Medicine; Emergency Provider Emergency Medicine; PCP Family Medicine; Visit Provider Chiropractor
DX: U07.1 COVID-19 (principal); J12.82 Pneumonia due to coronavirus disease 2019; Z68.43 Body mass index [BMI] 50.0-59.9, adult; J44.0 Chronic obstructive pulmonary disease with (acute) lower respiratory infection; I49.5 Sick sinus syndrome; E66.01 Morbid (severe) obesity due to excess calories; G47.33 Obstructive sleep apnea (adult) (pediatric); Z99.81 Dependence on supplemental oxygen; R77.8 Other specified abnormalities of plasma proteins; E78.5 Hyperlipidemia, unspecified; E11.22 Type 2 diabetes mellitus with diabetic chronic kidney disease; I12.9 Hypertensive chronic kidney disease with stage 1 through stage 4 chronic kidney disease, or unspecified chronic kidney disease; E11.42 Type 2 diabetes mellitus with diabetic polyneuropathy; N18.30 Chronic kidney disease, stage 3 unspecified; M10.9 Gout, unspecified; E87.6 Hypokalemia; H40.9 Unspecified glaucoma; R53.1 Weakness; Z96.653 Presence of artificial knee joint, bilateral; Z79.4 Long term (current) use of insulin; Z79.899 Other long term (current) drug therapy; Z87.891 Personal history of nicotine dependence; Z98.49 Cataract extraction status, unspecified eye
CPT/HCPCS: 36415; 71046; 71275; 80048; 80053; 82565; 82948; 83036; 83735; 83880; 84132; 84443; 84450; 84460; 84484; 85025; 85380; 85610; 93005; 93306; 93970; 94640; 96372; 96374; 96375; 96376; 97161; 97165; 97535; 99284; A9270; C9803; G0378; J0461; J1100; J1650; J1815; J7512; Q9967; U0003; U0005

== ENCOUNTER 2022-04-29 11:18 | Emergency (ER) | payer MEDICARE, SELFPAY ==
--- NOTE | ~2022-04-29 | XR_ITS ---
EXAMINATION: XR hand RT min 3V DATE: 04/29/2022 13:10 INDICATION: Right hand pain and swelling. TECHNIQUE: 4 views of right hand were obtained. COMPARISON: None. FINDINGS: Bone alignment is normal. No fracture. There is mild osteoarthritis of triscaphe joint, fir st carpometacarpal joint, and some of the interphalangeal joints. IMPRESSION: 1. Mild polyarticular osteoarthritis. Reviewed, dictated and finalized at location A.
--- NOTE | ~2022-04-29 | US_ITS ---
EXAMINATION: US venous doppler UE RT DATE: 04/29/2022 13:38 INDICATION: Right upper extremity swelling TECHNIQUE: Grayscale ultrasound images without and with compression and Doppler ultrasound images of the right upper extremity veins were obtained. COMPARISON: None. FINDINGS: The right internal jugular vein, subclavian vein, axillary vein, brachial veins, basilic vein, cephal ic vein, radial vein, and ulnar vein are patent. There is a small subcutaneous hematoma/bruise in the area of clinical concern. IMPRESSION: 1. No evidence of deep venous thrombosis. 2. Small subcutaneous hematoma/bruise in the area of clinical concern. Reviewed, dictated and finalized at location B.
[2022-04-29 11:23] VITALS: BP 136/71; PULSE 89; RESP 16; TEMP 36.7; O2SAT 95
--- NOTE | 2022-04-29 11:42 | ED.EXTPRO ---
HPI - Extremity Problem General Chief complaint: Extremity Problem,Nontraumatic Stated complaint: gout flare up Time Seen by Provider: 04/29/22 11:19 History of Present Illness HPI Narrative: 76-year-old female history of gout and chronic kidney disease presents the emergency room for evaluation of sudden onset of right hand swelling and pain. Patient states that she was recently removed from her allopurinol due to abnormal kidney function. Lab tests yesterday showed that her uric acid level was above normal. Patient woke this morning with severe pain and swelling to her right hand. Related Data Home Medications Medication Instructions Recorded Confirmed albuterol sulfate 90 mcg/actuation 2 inh inhalation QID PRN Wheezing 04/06/22 04/15/22 aerosol inhaler budesonide 160 mcg-glycopyr 9 2 inh inhalation BID 04/06/22 04/15/22 mcg-formot 4.8 mcg/actuation HFA inhaler (Breztri [employer]) cholecalciferol (vitamin D3) 1,250 1,250 mcg PO WEEKLY 04/06/22 04/15/22 mcg (50,000 unit) capsule empagliflozin 25 mg tablet 25 mg PO QAM 04/06/22 04/15/22 (Jardiance) fluoxetine 60 mg tablet 60 mg PO QAM 04/06/22 04/15/22 fluticasone propionate 50 1 spray intranasal QAM 04/06/22 04/15/22 mcg/actuation nasal spray,suspension gabapentin 300 mg capsule 300 mg PO TID 04/06/22 04/15/22 insulin glargine 100 unit/mL (3 20 unit subcut HS 04/06/22 04/15/22 mL) subcutaneous pen (Lantus Solostar U-100 Insulin) insulin lispro 100 unit/mL See Rx Instructions .Route .COMPLEX 04/06/22 04/15/22 subcutaneous solution (Humalog U-100 Insulin) latanoprost 0.005 % eye drops 1 drp EACH EYE QPM 04/06/22 04/15/22 montelukast 10 mg tablet 10 mg PO QAM 04/06/22 04/15/22 nystatin 100,000 unit/gram topical See Rx Instructions .Route .COMPLEX 04/06/22 04/15/22 ointment ondansetron 4 mg disintegrating 4 mg translingual QID PRN Nausea 04/06/22 04/15/22 tablet oxycodone 5 mg tablet 5 mg PO Q6H PRN Pain 04/06/22 04/15/22 sennosides 8.6 mg-docusate sodium 1 tab-cap PO BID 04/06/22 04/15/22 50 mg tablet (Senna-S) simvastatin 40 mg tablet 40 mg PO HS 04/06/22 04/15/22 Lasix 20 mg BYMOUTH DAILY 04/14/22 04/15/22 capsaicin 0.025 % topical cream 1 applic topical DAILY 04/14/22 04/15/22 colchicine 0.6 mg tablet 0.6 mg PO DAILY 04/14/22 04/15/22 potassium chloride 10 mEq 10 meq PO DAILY 04/14/22 04/15/22 tablet,extended release(part/cryst) prednisone 10 mg tablet 30 mg PO DAILY 04/14/22 04/15/22 Allergies Allergy/AdvReac Type Severity Reaction Status Date / Time aspirin Allergy Nausea and Verified 04/29/22 11:28 Vomiting celecoxib Allergy Unknown Verified 04/29/22 11:28 codeine Allergy N/V Verified 04/29/22 11:28 lisinopril Allergy Unknown Verified 04/29/22 11:28 metformin Allergy Unknown Verified 04/29/22 11:28 acetaminophen [From Tylenol] AdvReac ELEVATED Verified 04/29/22 11:28 LIVER ENZMES Review of Systems Review of Systems: CONSTITUTIONAL: Denies fever, chills, or sweats. EYES: Denies visual changes, redness, or discharge. ENT: Denies rhinorrhea, congestion, sore throat, or otalgia. CARDIOVASCULAR: Denies chest pain, palpitations, or edema. RESPIRATORY: Denies cough or dyspnea. GASTROINTESTINAL: Denies abdominal pain, nausea, vomiting, or diarrhea. GENITOURINARY: Denies dysuria or hematuria. SKIN: Denies rash or itching. MUSCULOSKELETAL: Reports swelling and right hand pain NEUROLOGIC: Denies headache, numbness, dizziness, or weakness. PSYCHIATRIC: Denies anxiety or depression. [facility] Past Medical History Medical History COPD (chronic obstructive pulmonary disease) CRF (chronic renal failure) DM2 (diabetes mellitus, type 2) Glaucoma Gout HTN (hypertension), malignant Hyperlipidemia Neuropathy Obesity LORENZO (obstructive sleep apnea) Requires oxygen therapy Surgical History Surgical History Ca
[2022-04-29] MEDS: ONDANSETRON HCL ODT 4 MG TABLET PO (12:04)
[2022-04-29] MEDS: MORPHINE SULFATE (*CRX) 4 MG/ML INJ IM (12:06)
--- NOTE | 2022-04-29 13:18 | PC.NURSE ---
Patient off unit to US.
--- NOTE | 2022-04-29 14:45 | PC.NURSE ---
Patient on 2 L O2 per [place]. [facility]. [facility] Ambulance requested. Awaiting arrival.
--- NOTE | 2022-04-29 15:33 | PC.NURSE ---
Patient report called to [facility].
[2022-04-29 16:27] VITALS: BP 122/65; PULSE 84; RESP 20; O2SAT 95
--- NOTE | 2022-04-29 17:14 | PC.NURSE ---
Received phone call from patient's on in law who was concerned about the lengthy wait for transportation back to rehab facility. This RN apologized for the wait and educated patient's son in law on the process for non-emergent transportation. Patient and daughter who are at bedside updated.
== END 2022-04-29 18:49 ==
PROVIDERS: Emergency Provider Nurse Practitioner Family; PCP Family Medicine
DX: M10.9 Gout, unspecified (principal); E11.22 Type 2 diabetes mellitus with diabetic chronic kidney disease; I12.9 Hypertensive chronic kidney disease with stage 1 through stage 4 chronic kidney disease, or unspecified chronic kidney disease; N18.9 Chronic kidney disease, unspecified; E11.40 Type 2 diabetes mellitus with diabetic neuropathy, unspecified; J44.9 Chronic obstructive pulmonary disease, unspecified; H40.9 Unspecified glaucoma; G47.33 Obstructive sleep apnea (adult) (pediatric); Z98.49 Cataract extraction status, unspecified eye; Z96.653 Presence of artificial knee joint, bilateral; Z87.891 Personal history of nicotine dependence; Z79.4 Long term (current) use of insulin; M19.041 Primary osteoarthritis, right hand; M18.9 Osteoarthritis of first carpometacarpal joint, unspecified; M19.031 Primary osteoarthritis, right wrist
CPT/HCPCS: 73130; 93971; 96372; 99284; A9270; J1100; J2270

== ENCOUNTER 2023-08-21 08:32 | Inpatient (IN) | payer MEDICARE, SELFPAY ==
[2023-08-21] VITALS (24 sets, daily range): BP systolic 98–129; BP diastolic 54–67; PULSE 52–96; RESP 10–34; TEMP 36.3–39.2; O2SAT 95–100; BMI 55.0
--- NOTE | ~2023-08-21 | CT_ITS ---
EXAMINATION: CT diagnostic chest wo con DATE: 08/21/2023 10:50 INDICATION: Left-sided pneumonia TECHNIQUE: Computed tomography (CT) of the chest was performed without intravenous contrast. The dose -length product was 972.53 mGy-cm. Automated exposure control and iterative reconstruction technique were employed. COMPARISON: Chest x-ray dated 08/21/[address] dated 04/14/2022 FINDINGS: No significant pleural or pericardial effusion. There are changes of gastric bypass. Gallbl adder is distended and contains stones. No thoracic lymphadenopathy. There is atherosclerosis of the aorta and coronary arteries. There is emphysema with mild superimposed chronic interstitial fibrosis. No focal lung consolidation to suggest pneumonia. The opacification on recent chest x-ray likely is artifactual due to patient body habitus. There are surgical changes of the left axilla. There is diff use idiopathic skeletal hyperostosis (DISH) of the thoracic spine. There is dextroscoliosis. IMPRESSION: 1. No evidence for focal pneumonia. Opacification a recent chest x-ray is likely artifactual. 2: Emphysema with superimposed chronic interstitial fibrosis. 3: Distended gallbladder with gallstones. Reviewed, dictated and finalized at location A. L ATTORNEY IMPRESSION: 1. No evidence for focal pneumonia. Opacification a recent chest x-ray is likel y artifactual. 2: Emphysema with superimposed chronic interstitial fibrosis. 3: Distended gallbladder with gallstones.
--- NOTE | ~2023-08-21 | US_ITS ---
EXAMINATION: US venous doppler [facility] DATE: 08/23/2023 08:30 INDICATION: Bilateral lower limb swelling TECHNIQUE: Ovalle scale images without and with compression and Doppler images of the bilateral lower e xtremity veins were obtained. COMPARISON: 04/15/2022 FINDINGS: The right common femoral vein, profunda femoral vein, femoral vein, popliteal vein, peroneal trunk, p osterior tibial veins, and greater saphenous vein are patent. The left common femoral vein, profunda femoral vein, femoral vein, popliteal vein, peroneal trunk, po sterior tibial veins, and greater saphenous vein are patent. IMPRESSION: 1. Patent bilateral lower extremity veins. No evidence of deep venous thrombosis. Reviewed, dictated and finalized at location L. TORING TECH IMPRESSION: 1. Patent bilateral lower extremity veins. No evidence of deep venous thrombosi s.
--- NOTE | ~2023-08-21 | XR_ITS ---
XR chest 1V portable 08/21/2023 09:20 Indication: Fever and cough Procedure: AP portable chest Comparison: 04/14/2022 Findings: There is extensive airspace consolidation of the left mid and lower thorax, consistent with pneumonia. No pneumothorax. Pacemaker leads are present. Cardiomegaly. Impression: 1: Extensive left-sided airspace disease, consistent with pneumonia. Reviewed, dictated and finalized at location A. WRITER Impression: 1: Extensive left-sided airspace disease, consistent with pneumonia.
--- NOTE | 2023-08-21 09:00 | ED.GENADULT ---
HPI - General Adult General Chief complaint: Fever Stated complaint: fever, cough, congestion Time Seen by Provider: 08/21/23 08:45 History of Present Illness HPI narrative: 77-year-old female presenting to the emergency department for evaluation of increased cough, confusion, nausea and some shortness of breath. Patient does have history of COPD and is 2 L of oxygen by nasal cannula as needed. Patient also wears a CPAP at nighttime. Patient states over last few days she has had increased cough and has been wearing her oxygen more frequently. Patient states yesterday she started running a fever and she was having some confusion regarding the time of the day. Patient denies any abdominal pain and denies any pain with urination. Related Data Home Medications Medication Instructions Recorded Confirmed albuterol sulfate 90 mcg/actuation 2 inh inhalation QID PRN Wheezing 04/06/22 08/21/23 aerosol inhaler budesonide 160 mcg-glycopyr 9 2 inh inhalation BID 04/06/22 08/21/23 mcg-formot 4.8 mcg/actuation HFA inhaler ([employer]) cholecalciferol (vitamin D3) 1,250 1,250 mcg PO WEEKLY 04/06/22 08/21/23 mcg (50,000 unit) capsule empagliflozin 25 mg tablet 25 mg PO QAM 04/06/22 08/21/23 (Jardiance) fluoxetine 60 mg tablet 60 mg PO QAM 04/06/22 08/21/23 fluticasone propionate 50 1 spray intranasal QAM 04/06/22 08/21/23 mcg/actuation nasal spray,suspension gabapentin 300 mg capsule 300 mg PO TID 04/06/22 08/21/23 insulin glargine 100 unit/mL (3 20 unit subcut HS 04/06/22 08/21/23 mL) subcutaneous pen (Lantus Solostar U-100 Insulin) insulin lispro 100 unit/mL See Rx Instructions .Route .COMPLEX 04/06/22 08/21/23 subcutaneous solution (Humalog U-100 Insulin) latanoprost 0.005 % eye drops 1 drp EACH EYE QPM 04/06/22 08/21/23 montelukast 10 mg tablet 10 mg PO QAM 04/06/22 08/21/23 nystatin 100,000 unit/gram topical See Rx Instructions .Route .COMPLEX 04/06/22 08/21/23 ointment simvastatin 40 mg tablet 40 mg PO HS 04/06/22 08/21/23 Lasix 20 mg PO DAILY 04/14/22 08/21/23 colchicine 0.6 mg tablet 0.6 mg PO DAILY 04/14/22 08/21/23 potassium chloride 10 mEq 10 meq PO DAILY 04/14/22 08/21/23 tablet,extended release(part/cryst) Allergies Allergy/AdvReac Type Severity Reaction Status Date / Time celecoxib Allergy Unknown Verified 04/29/22 11:28 lisinopril Allergy Unknown Verified 04/29/22 11:28 metformin Allergy Unknown Verified 04/29/22 11:28 acetaminophen [From Tylenol] AdvReac ELEVATED Verified 04/29/22 11:28 LIVER ENZMES aspirin AdvReac Nausea and Verified 08/21/23 10:02 Vomiting codeine AdvReac N/V Verified 08/21/23 10:02 Review of Systems Review of Systems: All systems reviewed & are unremarkable except as noted in HPI and below PMFSH Past Medical History Medical History (Updated 08/21/23 @ 15:37 by Janice Haynes PA-C) Cancer of left breast Chronic kidney disease, stage 3 Chronic obstructive pulmonary disease Chronic respiratory failure with hypoxia, on home oxygen therapy Coronary artery disease Glaucoma Gout Hyperlipidemia Hypertension Morbid obesity Obstructive sleep apnea on CPAP Osteoarthritis Type 2 diabetes mellitus Surgical History Surgical History (Updated 08/21/23 @ 15:32 by Janice Haynes PA-C) History of bilateral knee arthroplasty History of cataract extraction History of section, classical History of dilatation and curettage History of gastric bypass History of left mastectomy Family History Family History Mother Acute myocardial infarction Heart disease Kidney failure Hypertension Father Hypertension Sibling Diabetes mellitus Multiple sclerosis Hypertension Social History Social History (Updated 08/21/23 @ 15:33 by Janice Haynes PA-C) Social History: Healthcare power of trust and estates attorney: Yenifer Marley, daughter. Code status: Full code. Smoking
[2023-08-21 09:03] LABS: Basophils Percent Auto 0.5 % (0.2-1.2); Eosinophils Percent Auto 0.3 % (0-4.4); Hematocrit 37.2 % (37.0-47.0); Hemoglobin 11.9 g/dL (12.0-15.0); Immature Granulocyte Absolute 0.05 K/mm3 (0.00-0.031); Immature Granulocyte Percent A 0.6 % (0-0.5); Lymphocytes Absolute Auto 0.96 K/mm3 (0.9-3.2); Lymphocytes Percent Auto 12.4 % (18.3-44.2); Mean Corpuscular Hemoglobin 29.9 pg (26-34); Mean Corpuscular Volume 93.5 fl (80-100); Mean Platelet Volume 11.3 fl (7.4-10.4); Monocytes Absolute Auto 0.8 K/mm3 (0.1-0.6); Monocytes Percent Auto 9.7 % (2.6-8.5); Neutrophils Absolute Auto 5.9 K/mm3 (1.3-6.7); Neutrophils Percent Auto 76.5 % (45.5-73.1); Platelet Count Result 208 k/mm3 (150-375); Red Blood Count 3.98 M/mm3 (4.2-5.4); Red Cell Distribution Width 16.4 % (11.5-14.5); White Blood Count 7.8 K/mm3 (4.5-10.0)
[2023-08-21 09:15] LABS: Alanine Aminotransferase 13 U/L (6-35); Albumin Level 3.9 g/dL (3.5-5.1); Alkaline Phosphatase 62 U/L (38-126); Anion Gap 8 mmol/L (8-16); Aspartate Amino Transferase 57 U/L (14-36); Bilirubin,Total 0.9 mg/dL (0.2-1.3); Blood Urea Nitrogen 39 mg/dL (7-17); Calcium 8.9 mg/dL (8.4-10.2); Carbon Dioxide 23 mmol/L (22-30); Chloride 108 mmol/L (98-107); Estimated CRCL calculation 37 ml/min; Estimated Glomerular Filt Rate 38; Glucose 74 mg/dL (65-110); Potassium 4.4 mmol/L (3.4-5.0); Sodium 139 mmol/L (137-145)
[2023-08-21] MEDS: ALBUTEROL SULFATE NEB 2.5 MG/3 ML INH INHALATION ×2 (09:28→19:43)
[2023-08-21 09:41] LABS: Appearance Urine Clear (Clear); Bacteria Urine None Seen /hpf; Bilirubin Urine Negative (Negative); Blood Urine Negative (Negative); Color Urine Yellow (Yellow); Glucose Urine UA Trace mg/dL (Negative); Ketones Urine Negative (Negative); Leukocyte Esterase Ur Trace LEU/UL (Negative); Need Manual Microscopic Reviewed; Nitrate Urine Negative (Negative); Non Pathogenic Casts 0-2; Protein Urine Negative (Negative); RBC Urine 0-2 /hpf (0-2); Squamous Epithelial Cell Urine None seen /hpf (Few); pH Urine 5.5 (5.0-9.0)
[2023-08-21 09:41] LABS: Influenza A QL RT-PCR Negative (Negative); Influenza B QL RT-PCR Negative (Negative); RSV RNA, RT-PCR Negative (Negative); SARS-CoV-2 RNA PCR Positive (Negative)
[2023-08-21 09:42] LABS: Add Urine Microscopic? YES
[2023-08-21] MEDS: ACETAMINOPHEN 500 MG TABLET 1000 MG PO (09:58)
[2023-08-21 10:42] LABS: CRP 3.3 mg/dL (<1.0)
[2023-08-21 11:02] LABS: Procalcitonin 0.2 ng/mL
[2023-08-21] MEDS: AZITHROMYCIN 500 MG/NS 250 ML 500 MG/250 ML BAG 250 MG IVPB (11:04)
--- NOTE | 2023-08-21 12:02 | PC.NURSE ---
Daughter updated on room number and pt condition per pt request
--- NOTE | 2023-08-21 15:13 | ADMGEN ---
This patient, Mary Lou Santo, was admitted to [facility] Surg Room 309-01. Patient/family oriented to hospital policies and general routines including ID bracelet, bed and alarms, visiting hours, pain management, procedures, bathroom and other care routines, personal items, smoking policy, room service/diet, and visiting hours. Information on how to activate the Rapid Response Team has been discussed. Patient/Family are encouraged to report perceived risks to care and to ask questions if they do not understand what they are told or what they should do.
--- NOTE | 2023-08-21 15:24 | PM.IMHP ---
H&P: HPI History of Present Illness Date/Time: 08/21/23 15:00 Chief Complaint: Fever and cough. Narrative: This is a very pleasant 77-year-old female with chronic respiratory failure with hypoxia on p.r.n. oxygen, chronic obstructive pulmonary disease, coronary artery disease, congestive heart failure, sleep apnea, chronic kidney disease, anemia, type 2 diabetes mellitus, and other comorbidities who presented to the emergency department via EMS from home earlier today for evaluation of fever and cough. The patient provides the following history. The last several days she has been coughing and needing to wear her oxygen more frequently. Yesterday she started to run a fever and has some periods of mild confusion throughout the day. Her cough is productive of yellowish-colored phlegm. Appetite has been not great but she denies nausea, vomiting, and diarrhea. Her brother had similar symptoms last week. In the ED: Temperature is 102.5? F on arrival. Blood pressures have been stable. SpO2 has been in the upper 90s to 100 on 2 L nasal cannula which is what she uses at home. Labs were significant for WBC count of 7.8, hemoglobin 11.9, sodium 139, BUN 39, creatinine 1.60, CRP 3.3, procalcitonin 0.2. She was positive for SARS-CoV-2 by PCR. Chest x-ray showed extensive left-sided airspace disease. A subsequent chest CT showed no evidence for focal pneumonia (opacification on chest x-ray was felt to be due to artifact) and emphysema with superimposed chronic interstitial fibrosis. She was given albuterol nebulizer, 500 mg azithromycin, and 1 g ceftriaxone she is being admitted in this setting for further treatment Review of Systems Review of Systems: Twelve systems were reviewed and are negative except for as per HPI. [facility] Past Medical History Medical History Cancer of left breast Chronic kidney disease, stage 3 Chronic obstructive pulmonary disease Chronic respiratory failure with hypoxia, on home oxygen therapy Coronary artery disease Glaucoma Gout Hyperlipidemia Hypertension Morbid obesity Obstructive sleep apnea on CPAP Osteoarthritis Type 2 diabetes mellitus Surgical History Surgical History History of bilateral knee arthroplasty History of cataract extraction History of section, classical History of dilatation and curettage History of gastric bypass History of left mastectomy Family History Family History Mother Acute myocardial infarction Heart disease Kidney failure Hypertension Father Hypertension Sibling Diabetes mellitus Multiple sclerosis Hypertension Social History Social History Social History: Healthcare power of employment attorney: Yenifer Marley, daughter. Code status: Full code. Smoking packs per day: 1 Smoking cigarettes per day: 20.0 Years smoked: 43 Smoking pack-years: 43.00 Smoking status: Former smoker Tobacco type: cigarettes Second hand tobacco smoke exposure: No Additional smoking assessment comments: Quit 2017 Alcohol intake: former Drinks per week: 6 Substance use: never Substance use type: does not use Lack of Transportation: No Lack of Food: Never True Current Housing: I Have Housing Concerned About Future Housing: No Difficulty Paying Gas/Electric Bills: No Difficulty Paying for Meds: No Currently Unemployed: No Education: Master's Degree or Higher Difficulty w/ Childcare or Family Care: No Spiritual care concerns: No Meds Home Medications and Allergies Home Medications Medication Instructions Recorded Confirmed Type albuterol sulfate 90 mcg/actuation 2 inh inhalation QID PRN Wheezing 04/06/22 08/21/23 History aerosol inhaler budesonide 160 mcg-glycopyr 9 2 inh inhalation BID 04/06/22 08/21/23 Hi
[2023-08-21 16:35] LABS: INR 1.2; Prothrombin Time 15.5 Seconds (11.1-14.7)
[2023-08-21] MEDS: REMDESIVIR 200 MG/NS 250 ML 200 MG/250 ML BAG 250 MG IVPB (17:47)
[2023-08-21] MEDS: GABAPENTIN 300 MG CAPSULE PO (17:47)
[2023-08-21 18:31] LABS: Glucose Point of Care 80 mg/dl (65-105)
[2023-08-21 21:32] LABS: Glucose Point of Care 138 mg/dl (65-105)
[2023-08-21] MEDS: INSULIN GLARGINE (*BKC) 100 UNITS/ML 20 UNITS SUB-Q (21:55)
[2023-08-21] MEDS: guaiFENesin 12 HR 600 MG TABCR PO (21:55)
[2023-08-21] MEDS: SIMVASTATIN 20 MG TABLET 40 MG PO (21:55)
[2023-08-21] MEDS: ACETAMINOPHEN 650 MG SUPPOSITORY RECTAL (23:24)
[2023-08-22] VITALS (14 sets, daily range): BP systolic 112–129; BP diastolic 55–73; PULSE 63–80; RESP 18–21; TEMP 36.1–37.6; O2SAT 95–99
[2023-08-22] MEDS: BENZOCAINE/MENTHOL (*BKC) 18 EA LOZENGE 1 LOZENGE PO (01:02)
[2023-08-22] MEDS: LATANOPROST 0.005% OP SOLN 2.5 ML BTL 1 DROP EACH EYE ×2 (01:03→16:40)
[2023-08-22] MEDS: traMADol HCL (*CRX) 50 MG TABLET PO ×2 (01:04→09:52)
[2023-08-22] MEDS: ALBUTEROL SULFATE NEB 2.5 MG/3 ML INH INHALATION ×4 (02:20→21:30)
[2023-08-22 06:50] LABS: Hematocrit 36.5 % (37.0-47.0); Hemoglobin 11.1 g/dL (12.0-15.0); Mean Corpuscular HGB Conc 30.4 g/dl (32-36); Mean Corpuscular Hemoglobin 29.6 pg (26-34); Mean Corpuscular Volume 97.3 fl (80-100); Platelet Count Result 193 k/mm3 (150-375); Red Blood Count 3.75 M/mm3 (4.2-5.4); Red Cell Distribution Width 16.5 % (11.5-14.5); White Blood Count 7.8 K/mm3 (4.5-10.0)
[2023-08-22 07:08] LABS: Alanine Aminotransferase 20 U/L (6-35); Albumin Level 3.5 g/dL (3.5-5.1); Alkaline Phosphatase 68 U/L (38-126); Anion Gap 6 mmol/L (8-16); Aspartate Amino Transferase 68 U/L (14-36); Bilirubin,Total 0.4 mg/dL (0.2-1.3); Blood Urea Nitrogen 35 mg/dL (7-17); CRP 5.7 mg/dL (<1.0); Calcium 8.7 mg/dL (8.4-10.2); Carbon Dioxide 25 mmol/L (22-30); Chloride 108 mmol/L (98-107); Estimated CRCL calculation 37 ml/min; Estimated Glomerular Filt Rate 38; Glucose 97 mg/dL (65-110); Magnesium 2.3 mg/dL (1.6-2.3); Potassium 3.8 mmol/L (3.4-5.0); Sodium 139 mmol/L (137-145)
[2023-08-22 07:38] LABS: Glucose Point of Care 91 mg/dl (65-105)
--- NOTE | 2023-08-22 08:16 | PM.IMPN ---
Subjective Date/time seen: 08/22/23 08:16 Interval history: 08/21: This is a very pleasant 77-year-old female with chronic respiratory failure with hypoxia on p.r.n. oxygen, chronic obstructive pulmonary disease, coronary artery disease, congestive heart failure, sleep apnea, chronic kidney disease, anemia, type 2 diabetes mellitus, and other comorbidities who presented to the emergency department via EMS from home earlier today for evaluation of fever and cough. The patient provides the following history. The last several days she has been coughing and needing to wear her oxygen more frequently. Yesterday she started to run a fever and has some periods of mild confusion throughout the day. Her cough is productive of yellowish-colored phlegm. Appetite has been not great but she denies nausea, vomiting, and diarrhea. Her brother had similar symptoms last week. In the ED: Temperature is 102.5? F on arrival. Blood pressures have been stable. SpO2 has been in the upper 90s to 100 on 2 L nasal cannula which is what she uses at home. Labs were significant for WBC count of 7.8, hemoglobin 11.9, sodium 139, BUN 39, creatinine 1.60, CRP 3.3, procalcitonin 0.2. She was positive for SARS-CoV-2 by PCR. Chest x-ray showed extensive left-sided airspace disease. A subsequent chest CT showed no evidence for focal pneumonia (opacification on chest x-ray was felt to be due to artifact) and emphysema with superimposed chronic interstitial fibrosis. She was given albuterol nebulizer, 500 mg azithromycin, and 1 g ceftriaxone she is being admitted in this setting for further treatment 08/22: Pt states she got Covid from her caregiver who is her brother. States she is not able to walk to far secondary to COPD and SOB prior to Covid. States she uses a walker and a wheelchair. States she is normally on oxygen, but only as needed and wears a CPAP at night which her family is supposed to be bringing. C/o cough that is improved with tessalon perles and mucinex. Denies any SOB at rest. Vital signs stable and pt is afebrile. Labwork shows BUN 35 with creat. 1.6 today. Continues on Rocephin and azithromycin for the pneumonia and decadron for the Covid as she initially required increased oxygen use. Will order PT/OT for patient as she was weak at baseline. Objective Data Vital Signs Vital Signs: Vital Signs - 24 hr 08/21/23 08:34 08/21/23 09:28 08/21/23 09:09 Temperature 102.5 F H Pulse Rate 71 63 73 Respiratory Rate 28 H 21 H 16 Blood Pressure 124/62 Pulse Oximetry 98 100 Oxygen Delivery Nasal Cannula Oxygen Flow Rate 2 Fraction of Inspired Oxygen 08/21/23 09:15 08/21/23 09:17 08/21/23 09:18 Temperature Pulse Rate 85 66 70 Respiratory Rate 27 H 24 H 34 H Blood Pressure 127/67 Pulse Oximetry 100 98 Oxygen Delivery Oxygen Flow Rate Fraction of Inspired Oxygen 08/21/23 10:18 08/21/23 11:09 08/21/23 10:30 Temperature 99.8 F H Pulse Rate 63 65 65 Respiratory Rate 17 20 19 Blood Pressure 114/56 L Pulse Oximetry 99 100 100 Oxygen Delivery Oxygen Flow Rate Fraction of Inspired Oxygen 08/21/23 10:58 08/21/23 11:00 08/21/23 08:40 Temperature Pulse Rate 52 L Respiratory Rate 21 H 10 L Blood Pressure Pulse Oximetry 100 100 100 Oxygen Delivery Nasal Cannula Oxygen Flow Rate 2 Fraction of Inspired Oxygen 08/21/23 11:14 08/21/23 11:15 08/21/23 11:17 Temperature Pulse Rate 62 64 64 Respiratory Rate 19 19 19 Blood Pressure 114/56 L 108/58 L Pulse Oximetry 100 100 100 Oxygen Delivery Oxygen Flow Rate Fraction of Inspired Oxygen 08/21/23 11:30 08/21/23 11:32 08/21/23 14:11 Temperature Pulse Rate 66 61 Respiratory Rate 20 18 Blood Pressure 108/57 L Pulse Oximetry 100 100 Oxygen Delivery Room Air Oxygen Flow Rate Fraction of Inspired Oxygen 08/21/23 14:00 08/21/23 19:44 08/21/23 19:55 Temperature 97.3 F L Pulse Rate 71 71 74 Respiratory Rate 19 22 H 20
[2023-08-22] MEDS: FLUTICASONE/UMECLIDIN/VILANTER 100-62.5-25 MCG ELLIPTA 1 PUFF INHALATION (09:23)
[2023-08-22] MEDS: AZITHROMYCIN 500 MG/NS 250 ML 500 MG/250 ML BAG 250 MG IVPB (09:48)
[2023-08-22] MEDS: COLCHICINE 0.6 MG TABLET PO (09:49)
[2023-08-22] MEDS: DEXAMETHASONE 2 MG TABLET 6 MG PO (09:49)
[2023-08-22] MEDS: MONTELUKAST SODIUM 10 MG TABLET PO (09:49)
[2023-08-22] MEDS: FLUoxetine HCL 20 MG CAPSULE 60 MG PO (09:49)
[2023-08-22] MEDS: POTASSIUM CHLORIDE 10 MEQ ER TABLET PO (09:49)
[2023-08-22] MEDS: EMPAGLIFLOZIN 25 MG TABLET PO (09:49)
[2023-08-22] MEDS: GABAPENTIN 300 MG CAPSULE PO ×3 (09:49→16:41)
[2023-08-22] MEDS: ENOXAPARIN 40 MG/0.4 ML SYRINGE SUB-Q (09:50)
[2023-08-22] MEDS: guaiFENesin 12 HR 600 MG TABCR PO ×2 (09:50→21:46)
[2023-08-22] MEDS: FLUTICASONE PROPIONATE 0.05% NA SPR 16 GM BTL (*BKC) 1 SPRAY NASAL (09:50)
[2023-08-22] MEDS: MICONAZOLE NITRATE 2% CREAM 30 GM TUBE 1 APPLIC TOPICAL ×2 (09:50→21:57)
[2023-08-22 11:46] LABS: Glucose Point of Care 134 mg/dl (65-105)
[2023-08-22] MEDS: ACETAMINOPHEN 325 MG TABLET 650 MG PO (12:08)
[2023-08-22] MEDS: BENZONATATE 100 MG CAPSULE PO (12:08)
[2023-08-22 16:49] LABS: Glucose Point of Care 147 mg/dl (65-105)
[2023-08-22] MEDS: REMDESIVIR 100 MG/NS 250 ML 100 MG/250 ML BAG 250 MG IVPB (21:46)
[2023-08-22] MEDS: SIMVASTATIN 20 MG TABLET 40 MG PO (21:46)
[2023-08-22] MEDS: INSULIN ASPART (*BKC) 100 UNITS/ML SUB-Q (21:48)
[2023-08-22] MEDS: INSULIN GLARGINE (*BKC) 100 UNITS/ML 20 UNITS SUB-Q (21:50)
[2023-08-22 21:57] LABS: Glucose Point of Care 203 mg/dl (65-105)
[2023-08-23] VITALS (16 sets, daily range): BP systolic 120–136; BP diastolic 53–66; PULSE 60–80; RESP 16–20; TEMP 36.2–36.7; O2SAT 95–100
[2023-08-23] MEDS: ALBUTEROL SULFATE NEB 2.5 MG/3 ML INH INHALATION ×4 (02:46→21:18)
[2023-08-23] MEDS: MICONAZOLE NITRATE 2% CREAM 30 GM TUBE 1 APPLIC TOPICAL ×3 (05:40→23:06)
[2023-08-23 06:49] LABS: Alanine Aminotransferase 34 U/L (6-35); Albumin Level 3.8 g/dL (3.5-5.1); Alkaline Phosphatase 72 U/L (38-126); Aspartate Amino Transferase 93 U/L (14-36); Bilirubin,Total 0.5 mg/dL (0.2-1.3)
[2023-08-23 06:53] LABS: INR 1.1; Prothrombin Time 14.9 Seconds (11.1-14.7)
[2023-08-23 08:07] LABS: Glucose Point of Care 127 mg/dl (65-105)
--- NOTE | 2023-08-23 09:06 | PM.IMPN ---
Progress Note: A&P Assessment and Plan (1) COVID: Code(s): U07.1 - COVID-19 Status: Acute Assessment and Plan: On remdesivir and dexamethasone (2) Bacterial pneumonia: Code(s): J15.9 - Unspecified bacterial pneumonia Status: Acute Assessment and Plan: On azithromycin and increase Rocephin to 2 g Q 24 hours, growing 2 versions of Gram-positive cocci likely pneumococcus. Pneumococcal antigen and Legionella antigen ordered (3) Acute UTI: Code(s): N39.0 - Urinary tract infection, site not specified Status: Acute Assessment and Plan: E coli in urine. Continue Rocephin (4) Chronic respiratory failure with hypoxia, on home oxygen therapy: Code(s): J96.11 - Chronic respiratory failure with hypoxia; Z99.81 - Dependence on supplemental oxygen Status: Acute Assessment and Plan: Continue supplemental oxygen (5) Chronic kidney disease, stage 3: Code(s): N18.30 - Chronic kidney disease, stage 3 unspecified Status: Acute Assessment and Plan: Estimated GFR 41 today (6) Chronic obstructive pulmonary disease: Code(s): J44.9 - Chronic obstructive pulmonary disease, unspecified Status: Acute Assessment and Plan: Continue nebulizer treatments and steroids. (7) Morbid obesity: Code(s): E66.01 - Morbid (severe) obesity due to excess calories Status: Acute (8) Obstructive sleep apnea on CPAP: Code(s): G47.33 - Obstructive sleep apnea (adult) (pediatric) Status: Acute Assessment and Plan: CPAP at bedside (9) Hypertension: Code(s): I10 - Essential (primary) hypertension Status: Acute Assessment and Plan: Blood pressure reviewed on 08/23, stable without need for intervention Subjective Date/time seen: 08/23/23 09:06 Interval history: 08/21: This is a very pleasant 77-year-old female with chronic respiratory failure with hypoxia on p.r.n. oxygen, chronic obstructive pulmonary disease, coronary artery disease, congestive heart failure, sleep apnea, chronic kidney disease, anemia, type 2 diabetes mellitus, and other comorbidities who presented to the emergency department via EMS from home earlier today for evaluation of fever and cough. The patient provides the following history. The last several days she has been coughing and needing to wear her oxygen more frequently. Yesterday she started to run a fever and has some periods of mild confusion throughout the day. Her cough is productive of yellowish-colored phlegm. Appetite has been not great but she denies nausea, vomiting, and diarrhea. Her brother had similar symptoms last week. In the ED: Temperature is 102.5? F on arrival. Blood pressures have been stable. SpO2 has been in the upper 90s to 100 on 2 L nasal cannula which is what she uses at home. Labs were significant for WBC count of 7.8, hemoglobin 11.9, sodium 139, BUN 39, creatinine 1.60, CRP 3.3, procalcitonin 0.2. She was positive for SARS-CoV-2 by PCR. Chest x-ray showed extensive left-sided airspace disease. A subsequent chest CT showed no evidence for focal pneumonia (opacification on chest x-ray was felt to be due to artifact) and emphysema with superimposed chronic interstitial fibrosis. She was given albuterol nebulizer, 500 mg azithromycin, and 1 g ceftriaxone she is being admitted in this setting for further treatment 08/22: Pt states she got Covid from her caregiver who is her brother. States she is not able to walk to far secondary to COPD and SOB prior to Covid. States she uses a walker and a wheelchair. States she is normally on oxygen, but only as needed and wears a CPAP at night which her family is supposed to be bringing. C/o cough that is improved with tessalon perles and mucinex. Denies any SOB at rest. Vital signs stable and pt is afebrile. Labwork shows BUN 35 with creat. 1.6 today. Continues on Rocephin and azithromycin for the pneumonia and decadron for the Covid
[2023-08-23 09:09] LABS: Anion Gap 9 mmol/L (8-16); Blood Urea Nitrogen 40 mg/dL (7-17); Calcium 9.4 mg/dL (8.4-10.2); Carbon Dioxide 22 mmol/L (22-30); Chloride 111 mmol/L (98-107); Estimated CRCL calculation 39 ml/min; Estimated Glomerular Filt Rate 41; Glucose 140 mg/dL (65-110); Potassium 4.9 mmol/L (3.4-5.0); Sodium 142 mmol/L (137-145)
[2023-08-23] MEDS: AZITHROMYCIN 500 MG/NS 250 ML 500 MG/250 ML BAG 250 MG IVPB (10:11)
[2023-08-23] MEDS: FLUoxetine HCL 20 MG CAPSULE 60 MG PO (10:12)
[2023-08-23] MEDS: DEXAMETHASONE 2 MG TABLET 6 MG PO (10:12)
[2023-08-23] MEDS: COLCHICINE 0.6 MG TABLET PO (10:12)
[2023-08-23] MEDS: ENOXAPARIN 40 MG/0.4 ML SYRINGE SUB-Q (10:12)
[2023-08-23] MEDS: guaiFENesin 12 HR 600 MG TABCR PO ×2 (10:12→23:05)
[2023-08-23] MEDS: ACETAMINOPHEN 325 MG TABLET 650 MG PO (10:13)
[2023-08-23] MEDS: BENZONATATE 100 MG CAPSULE PO ×3 (10:13→23:05)
[2023-08-23] MEDS: GABAPENTIN 300 MG CAPSULE PO ×3 (10:13→17:08)
[2023-08-23] MEDS: MONTELUKAST SODIUM 10 MG TABLET PO (10:13)
[2023-08-23] MEDS: EMPAGLIFLOZIN 25 MG TABLET PO (10:14)
[2023-08-23] MEDS: FLUTICASONE/UMECLIDIN/VILANTER 100-62.5-25 MCG ELLIPTA 1 PUFF INHALATION (10:56)
[2023-08-23] MEDS: FLUTICASONE PROPIONATE 0.05% NA SPR 16 GM BTL (*BKC) 1 SPRAY NASAL (11:37)
[2023-08-23 12:07] LABS: Glucose Point of Care 145 mg/dl (65-105)
[2023-08-23 15:41] LABS: MRSA (PCR) NOT DETECTED (NOT DETECTE)
[2023-08-23] MEDS: LATANOPROST 0.005% OP SOLN 2.5 ML BTL 1 DROP EACH EYE (17:09)
[2023-08-23 17:25] LABS: Glucose Point of Care 188 mg/dl (65-105)
[2023-08-23 22:05] LABS: Glucose Point of Care 197 mg/dl (65-105)
[2023-08-23] MEDS: traMADol HCL (*CRX) 50 MG TABLET PO (23:04)
[2023-08-23] MEDS: SIMVASTATIN 20 MG TABLET 40 MG PO (23:04)
[2023-08-23] MEDS: INSULIN GLARGINE (*BKC) 100 UNITS/ML 20 UNITS SUB-Q (23:05)
[2023-08-23] MEDS: REMDESIVIR 100 MG/NS 250 ML 100 MG/250 ML BAG 250 MG IVPB (23:10)
[2023-08-24] VITALS (8 sets, daily range): BP systolic 138–165; BP diastolic 60–85; PULSE 62–79; RESP 16–20; TEMP 36.3–37.1; O2SAT 94–100
[2023-08-24] MEDS: ALBUTEROL SULFATE NEB 2.5 MG/3 ML INH INHALATION (02:52)
[2023-08-24] MEDS: MICONAZOLE NITRATE 2% CREAM 30 GM TUBE 1 APPLIC TOPICAL ×3 (05:01→21:56)
[2023-08-24 06:23] LABS: Basophils Percent Auto 0.2 % (0.2-1.2); Eosinophils Percent Auto 0.1 % (0-4.4); Hemoglobin 11.4 g/dL (12.0-15.0); Immature Granulocyte Absolute 0.04 K/mm3 (0.00-0.031); Immature Granulocyte Percent A 0.5 % (0-0.5); Lymphocytes Absolute Auto 1.64 K/mm3 (0.9-3.2); Mean Corpuscular HGB Conc 31.7 g/dl (32-36); Mean Corpuscular Hemoglobin 30.1 pg (26-34); Mean Platelet Volume 12.5 fl (7.4-10.4); Monocytes Absolute Auto 0.7 K/mm3 (0.1-0.6); Monocytes Percent Auto 8.5 % (2.6-8.5); Neutrophils Absolute Auto 6.2 K/mm3 (1.3-6.7); Neutrophils Percent Auto 71.7 % (45.5-73.1); Nucleated Red Blood Cells Perc 0.3 % (0.0-0.2); Platelet Count Result 224 k/mm3 (150-375); Red Blood Count 3.79 M/mm3 (4.2-5.4); Red Cell Distribution Width 16.4 % (11.5-14.5); White Blood Count 8.6 K/mm3 (4.5-10.0)
[2023-08-24 06:24] LABS: Alanine Aminotransferase 27 U/L (6-35); Albumin Level 3.6 g/dL (3.5-5.1); Alkaline Phosphatase 67 U/L (38-126); Anion Gap 5 mmol/L (8-16); Aspartate Amino Transferase 73 U/L (14-36); Bilirubin,Total 0.4 mg/dL (0.2-1.3); Blood Urea Nitrogen 41 mg/dL (7-17); Calcium 9.2 mg/dL (8.4-10.2); Carbon Dioxide 28 mmol/L (22-30); Chloride 109 mmol/L (98-107); Estimated CRCL calculation 42 ml/min; Estimated Glomerular Filt Rate 44; Glucose 180 mg/dL (65-110); Magnesium 2.4 mg/dL (1.6-2.3); Potassium 4.4 mmol/L (3.4-5.0); Sodium 142 mmol/L (137-145)
[2023-08-24 07:42] LABS: Glucose Point of Care 137 mg/dl (65-105)
[2023-08-24] MEDS: ENOXAPARIN 40 MG/0.4 ML SYRINGE SUB-Q (09:20)
[2023-08-24] MEDS: FLUTICASONE PROPIONATE 0.05% NA SPR 16 GM BTL (*BKC) 1 SPRAY NASAL (09:20)
[2023-08-24] MEDS: FLUTICASONE/UMECLIDIN/VILANTER 100-62.5-25 MCG ELLIPTA 1 PUFF INHALATION (09:27)
[2023-08-24] MEDS: AZITHROMYCIN 250 MG TABLET 500 MG PO (09:42)
[2023-08-24] MEDS: FLUoxetine HCL 20 MG CAPSULE 60 MG PO (09:42)
[2023-08-24] MEDS: COLCHICINE 0.6 MG TABLET PO (09:43)
[2023-08-24] MEDS: MONTELUKAST SODIUM 10 MG TABLET PO (09:43)
[2023-08-24] MEDS: guaiFENesin 12 HR 600 MG TABCR PO ×2 (09:43→21:46)
[2023-08-24] MEDS: POTASSIUM CHLORIDE 10 MEQ ER TABLET PO (09:43)
[2023-08-24] MEDS: DEXAMETHASONE 2 MG TABLET 6 MG PO (09:43)
[2023-08-24] MEDS: GABAPENTIN 300 MG CAPSULE PO ×3 (09:44→18:06)
--- NOTE | 2023-08-24 09:48 | PM.IMPN ---
Progress Note: A&P Assessment and Plan (1) COVID: Code(s): U07.1 - COVID-19 Status: Acute Assessment and Plan: On remdesivir and dexamethasone (2) Bacterial pneumonia: Code(s): J15.9 - Unspecified bacterial pneumonia Status: Acute Assessment and Plan: On azithromycin and increase Rocephin to 2 g Q 24 hours, growing 2 versions of Gram-positive cocci likely pneumococcus. Pneumococcal antigen and Legionella antigen ordered (3) Acute UTI: Code(s): N39.0 - Urinary tract infection, site not specified Status: Acute Assessment and Plan: E coli in urine. Continue Rocephin (4) Chronic respiratory failure with hypoxia, on home oxygen therapy: Code(s): J96.11 - Chronic respiratory failure with hypoxia; Z99.81 - Dependence on supplemental oxygen Status: Acute Assessment and Plan: Continue supplemental oxygen (5) Chronic kidney disease, stage 3: Code(s): N18.30 - Chronic kidney disease, stage 3 unspecified Status: Acute Assessment and Plan: Estimated GFR 44 today (6) Chronic obstructive pulmonary disease: Code(s): J44.9 - Chronic obstructive pulmonary disease, unspecified Status: Acute Assessment and Plan: Continue nebulizer treatments and steroids. (7) Morbid obesity: Code(s): E66.01 - Morbid (severe) obesity due to excess calories Status: Acute (8) Obstructive sleep apnea on CPAP: Code(s): G47.33 - Obstructive sleep apnea (adult) (pediatric) Status: Acute Assessment and Plan: CPAP at bedside (9) Hypertension: Code(s): I10 - Essential (primary) hypertension Status: Acute Assessment and Plan: Blood pressure reviewed on 08/24, stable without need for intervention Time Spent With Patient Time with patient: 25 - 35 minutes Subjective Date/time seen: 08/24/23 12:08 Interval history: 08/21 H&P: This is a very pleasant 77-year-old female with chronic respiratory failure with hypoxia on p.r.n. oxygen, chronic obstructive pulmonary disease, coronary artery disease, congestive heart failure, sleep apnea, chronic kidney disease, anemia, type 2 diabetes mellitus, and other comorbidities who presented to the emergency department via EMS from home earlier today for evaluation of fever and cough. The patient provides the following history. The last several days she has been coughing and needing to wear her oxygen more frequently. Yesterday she started to run a fever and has some periods of mild confusion throughout the day. Her cough is productive of yellowish-colored phlegm. Appetite has been not great but she denies nausea, vomiting, and diarrhea. Her brother had similar symptoms last week. In the ED: Temperature is 102.5? F on arrival. Blood pressures have been stable. SpO2 has been in the upper 90s to 100 on 2 L nasal cannula which is what she uses at home. Labs were significant for WBC count of 7.8, hemoglobin 11.9, sodium 139, BUN 39, creatinine 1.60, CRP 3.3, procalcitonin 0.2. She was positive for SARS-CoV-2 by PCR. Chest x-ray showed extensive left-sided airspace disease. A subsequent chest CT showed no evidence for focal pneumonia (opacification on chest x-ray was felt to be due to artifact) and emphysema with superimposed chronic interstitial fibrosis. She was given albuterol nebulizer, 500 mg azithromycin, and 1 g ceftriaxone she is being admitted in this setting for further treatment 08/22: Pt states she got Covid from her caregiver who is her brother. States she is not able to walk to far secondary to COPD and SOB prior to Covid. States she uses a walker and a wheelchair. States she is normally on oxygen, but only as needed and wears a CPAP at night which her family is supposed to be bringing. C/o cough that is improved with tessalon perles and mucinex. Denies any SOB at rest. Vital signs stable and pt is afebrile. Labwork shows BUN 35 with creat. 1.6 today. Continues on Rocep
--- NOTE | 2023-08-24 11:05 | ECG_ITS ---
Measurements Intervals [place] Rate: 68 P: 261 [place]: 311 QRS: -5 QRSD: 105 T: 15 QT: 418 QTc: 445 Interpretive Statements ELECTRONIC ATRIAL PACEMAKER LOW QRS VOLTAGE IN PRECORDIAL LEADS [QRS DEFLECTION < 1.0 mV IN CHEST LEADS] ABNORMAL ECG COMPARED TO ECG 04/18/2022 11:25:33 ELECTRONIC ATRIAL PACEMAKER NOW PRESENT Electronically Signed On 08-24-2023 16:01:04 WELDER/INSTALLER by Colt Grimes M.D.
[2023-08-24] MEDS: cefTRIAXone 2 GM/NS 100 ML 2 GM/100 ML BAG IVPB (11:38)
[2023-08-24 11:45] LABS: Glucose Point of Care 143 mg/dl (65-105)
[2023-08-24 11:56] LABS: Troponin I < 0.012 ng/mL (0.000-0.034)
[2023-08-24] MEDS: ALBUTEROL SULFATE (*SP) AEROSOL 1 PUFF 2 PUFF INHALATION ×2 (14:21→21:47)
[2023-08-24] MEDS: EMPAGLIFLOZIN 25 MG TABLET PO (14:52)
[2023-08-24 15:57] LABS: Troponin I < 0.012 ng/mL (0.000-0.034)
[2023-08-24 16:42] LABS: Glucose Point of Care 322 mg/dl (65-105)
[2023-08-24] MEDS: INSULIN ASPART (*BKC) 100 UNITS/ML SUB-Q ×2 (18:05→21:47)
[2023-08-24] MEDS: LATANOPROST 0.005% OP SOLN 2.5 ML BTL 1 DROP EACH EYE (18:05)
[2023-08-24] MEDS: ACETAMINOPHEN 325 MG TABLET 650 MG PO (18:06)
[2023-08-24 20:25] LABS: Glucose Point of Care 211 mg/dl (65-105)
[2023-08-24] MEDS: SIMVASTATIN 20 MG TABLET 40 MG PO (21:47)
[2023-08-24] MEDS: INSULIN GLARGINE (*BKC) 100 UNITS/ML 20 UNITS SUB-Q (21:47)
[2023-08-24] MEDS: REMDESIVIR 100 MG/NS 250 ML 100 MG/250 ML BAG 250 MG IVPB (21:50)
[2023-08-25 04:48] VITALS: BP 151/62; PULSE 61; RESP 18; TEMP 36.2; O2SAT 100
[2023-08-25] MEDS: MICONAZOLE NITRATE 2% CREAM 30 GM TUBE 1 APPLIC TOPICAL ×3 (05:06→21:39)
[2023-08-25 06:06] LABS: Basophils Percent Auto 0.2 % (0.2-1.2); Eosinophils Percent Auto 0.4 % (0-4.4); Hematocrit 36.8 % (37.0-47.0); Hemoglobin 11.2 g/dL (12.0-15.0); Immature Granulocyte Absolute 0.03 K/mm3 (0.00-0.031); Immature Granulocyte Percent A 0.4 % (0-0.5); Lymphocytes Percent Auto 27.6 % (18.3-44.2); Mean Corpuscular HGB Conc 30.4 g/dl (32-36); Mean Corpuscular Hemoglobin 29.1 pg (26-34); Mean Corpuscular Volume 95.6 fl (80-100); Mean Platelet Volume 12.3 fl (7.4-10.4); Monocytes Absolute Auto 0.8 K/mm3 (0.1-0.6); Neutrophils Absolute Auto 5.2 K/mm3 (1.3-6.7); Neutrophils Percent Auto 62.4 % (45.5-73.1); Nucleated Red Blood Cells Absolute Auto 0.1 K/mm3 (0.0-0.012); Platelet Count Result 226 k/mm3 (150-375); Red Blood Count 3.85 M/mm3 (4.2-5.4); Red Cell Distribution Width 16.4 % (11.5-14.5); White Blood Count 8.3 K/mm3 (4.5-10.0)
[2023-08-25 06:16] LABS: Alanine Aminotransferase 31 U/L (6-35); Albumin Level 3.6 g/dL (3.5-5.1); Alkaline Phosphatase 67 U/L (38-126); Anion Gap 3 mmol/L (8-16); Aspartate Amino Transferase 81 U/L (14-36); Bilirubin,Total 0.3 mg/dL (0.2-1.3); Blood Urea Nitrogen 43 mg/dL (7-17); Calcium 9.1 mg/dL (8.4-10.2); Carbon Dioxide 30 mmol/L (22-30); Chloride 108 mmol/L (98-107); Estimated CRCL calculation 37 ml/min; Estimated Glomerular Filt Rate 38; Glucose 131 mg/dL (65-110); INR 1.1; Magnesium 2.3 mg/dL (1.6-2.3); Potassium 4.6 mmol/L (3.4-5.0); Prothrombin Time 14.6 Seconds (11.1-14.7); Sodium 141 mmol/L (137-145)
[2023-08-25 07:34] LABS: Glucose Point of Care 137 mg/dl (65-105)
[2023-08-25] MEDS: POTASSIUM CHLORIDE 10 MEQ ER TABLET PO (08:47)
[2023-08-25] MEDS: cefTRIAXone 2 GM/NS 100 ML 2 GM/100 ML BAG IVPB (08:47)
[2023-08-25] MEDS: GABAPENTIN 300 MG CAPSULE PO ×3 (08:47→17:28)
[2023-08-25] MEDS: EMPAGLIFLOZIN 25 MG TABLET PO (08:47)
[2023-08-25] MEDS: AZITHROMYCIN 250 MG TABLET 500 MG PO (08:47)
[2023-08-25] MEDS: COLCHICINE 0.6 MG TABLET PO (08:47)
[2023-08-25] MEDS: FLUoxetine HCL 20 MG CAPSULE 60 MG PO (08:47)
[2023-08-25] MEDS: guaiFENesin 12 HR 600 MG TABCR PO ×2 (08:47→21:37)
[2023-08-25] MEDS: MONTELUKAST SODIUM 10 MG TABLET PO (08:47)
[2023-08-25] MEDS: DEXAMETHASONE 2 MG TABLET 6 MG PO (08:48)
[2023-08-25] MEDS: ENOXAPARIN 40 MG/0.4 ML SYRINGE SUB-Q (08:48)
[2023-08-25] MEDS: FLUTICASONE PROPIONATE 0.05% NA SPR 16 GM BTL (*BKC) 1 SPRAY NASAL (08:58)
[2023-08-25] MEDS: FLUTICASONE/UMECLIDIN/VILANTER 100-62.5-25 MCG ELLIPTA 1 PUFF INHALATION (09:25)
[2023-08-25 09:26] VITALS: PULSE 60
[2023-08-25] MEDS: ALBUTEROL SULFATE (*SP) AEROSOL 1 PUFF 2 PUFF INHALATION ×3 (09:26→21:22)
[2023-08-25 12:06] LABS: Glucose Point of Care 124 mg/dl (65-105)
--- NOTE | 2023-08-25 12:42 | PM.IMPN ---
Progress Note: A&P Assessment and Plan (1) COVID: Code(s): U07.1 - COVID-19 Status: Acute Assessment and Plan: On remdesivir and dexamethasone (2) Bacterial pneumonia: Code(s): J15.9 - Unspecified bacterial pneumonia Status: Acute Assessment and Plan: Sputum culture growing 2 versions of Gram-positive cocci likely pneumococcus. Pneumococcal antigen and Legionella antigen ordered. Remdesivir will finish tonight, azithromycin has finished today and plan to transition Rocephin to Augmentin tomorrow, may continue Rocephin due to chills today. (3) Acute UTI: Code(s): N39.0 - Urinary tract infection, site not specified Status: Acute Assessment and Plan: E coli in urine. Continue antibiotics for pneumonia which will also cover urine (4) Chronic respiratory failure with hypoxia, on home oxygen therapy: Code(s): J96.11 - Chronic respiratory failure with hypoxia; Z99.81 - Dependence on supplemental oxygen Status: Acute Assessment and Plan: Continue supplemental oxygen (5) Chronic kidney disease, stage 3: Code(s): N18.30 - Chronic kidney disease, stage 3 unspecified Status: Acute Assessment and Plan: Estimated GFR 38 today (6) Chronic obstructive pulmonary disease: Code(s): J44.9 - Chronic obstructive pulmonary disease, unspecified Status: Acute Assessment and Plan: Continue nebulizer treatments and steroids. (7) Morbid obesity: Code(s): E66.01 - Morbid (severe) obesity due to excess calories Status: Acute (8) Obstructive sleep apnea on CPAP: Code(s): G47.33 - Obstructive sleep apnea (adult) (pediatric) Status: Acute Assessment and Plan: CPAP at bedside (9) Hypertension: Code(s): I10 - Essential (primary) hypertension Status: Acute Assessment and Plan: Blood pressure reviewed on 08/25, stable without need for intervention Plan Looking at [facility] authorization for pending discharge, patient can likely discharge tomorrow pending labs and re-evaluation Time Spent With Patient Time with patient: Greater than 35 minutes Subjective Date/time seen: 08/25/23 12:42 Interval history: 08/21 H&P: This is a very pleasant 77-year-old female with chronic respiratory failure with hypoxia on p.r.n. oxygen, chronic obstructive pulmonary disease, coronary artery disease, congestive heart failure, sleep apnea, chronic kidney disease, anemia, type 2 diabetes mellitus, and other comorbidities who presented to the emergency department via EMS from home earlier today for evaluation of fever and cough. The patient provides the following history. The last several days she has been coughing and needing to wear her oxygen more frequently. Yesterday she started to run a fever and has some periods of mild confusion throughout the day. Her cough is productive of yellowish-colored phlegm. Appetite has been not great but she denies nausea, vomiting, and diarrhea. Her brother had similar symptoms last week. In the ED: Temperature is 102.5? F on arrival. Blood pressures have been stable. SpO2 has been in the upper 90s to 100 on 2 L nasal cannula which is what she uses at home. Labs were significant for WBC count of 7.8, hemoglobin 11.9, sodium 139, BUN 39, creatinine 1.60, CRP 3.3, procalcitonin 0.2. She was positive for SARS-CoV-2 by PCR. Chest x-ray showed extensive left-sided airspace disease. A subsequent chest CT showed no evidence for focal pneumonia (opacification on chest x-ray was felt to be due to artifact) and emphysema with superimposed chronic interstitial fibrosis. She was given albuterol nebulizer, 500 mg azithromycin, and 1 g ceftriaxone she is being admitted in this setting for further treatment 08/22: Pt states she got Covid from her caregiver who is her brother. States she is not able to walk to far secondary to COPD and SOB prior to Covid. States she uses a walker and a wheelchair. States she
[2023-08-25 14:00] VITALS: BP 139/81; PULSE 55; RESP 18; TEMP 36.5; O2SAT 93
[2023-08-25 14:41] VITALS: PULSE 57
--- NOTE | 2023-08-25 14:46 | PCPTNOTE ---
The patient treatment was not able to be completed at this time due to patient with OT. Will plan to continue treatment per plan of care.
[2023-08-25 16:54] LABS: Glucose Point of Care 166 mg/dl (65-105)
[2023-08-25] MEDS: LATANOPROST 0.005% OP SOLN 2.5 ML BTL 1 DROP EACH EYE (17:28)
[2023-08-25] MEDS: INSULIN GLARGINE (*BKC) 100 UNITS/ML 20 UNITS SUB-Q (21:37)
[2023-08-25] MEDS: SIMVASTATIN 20 MG TABLET 40 MG PO (21:37)
[2023-08-25] MEDS: FAMOTIDINE 20 MG TABLET PO (21:37)
[2023-08-25] MEDS: PANTOPRAZOLE 40 MG TABLET PO (21:37)
[2023-08-25] MEDS: REMDESIVIR 100 MG/NS 250 ML 100 MG/250 ML BAG 250 MG IVPB (21:42)
[2023-08-25 22:00] VITALS: BP 115/83; PULSE 73; RESP 22; TEMP 36.5; O2SAT 98
[2023-08-26 00:11] LABS: Glucose Point of Care 185 mg/dl (65-105)
[2023-08-26 05:57] VITALS: BP 145/79; PULSE 66; RESP 18; TEMP 36.5; O2SAT 100
[2023-08-26] MEDS: MICONAZOLE NITRATE 2% CREAM 30 GM TUBE 1 APPLIC TOPICAL (06:15)
[2023-08-26 07:23] LABS: Basophils Percent Auto 0.5 % (0.2-1.2); Eosinophils Absolute Auto 0.1 K/mm3 (0-0.3); Eosinophils Percent Auto 0.9 % (0-4.4); Hematocrit 34.8 % (37.0-47.0); Hemoglobin 10.9 g/dL (12.0-15.0); Immature Granulocyte Absolute 0.04 K/mm3 (0.00-0.031); Immature Granulocyte Percent A 0.5 % (0-0.5); Lymphocytes Absolute Auto 2.84 K/mm3 (0.9-3.2); Lymphocytes Percent Auto 34.9 % (18.3-44.2); Mean Corpuscular HGB Conc 31.3 g/dl (32-36); Mean Corpuscular Hemoglobin 29.5 pg (26-34); Mean Corpuscular Volume 94.3 fl (80-100); Mean Platelet Volume 11.8 fl (7.4-10.4); Monocytes Percent Auto 11.9 % (2.6-8.5); Neutrophils Absolute Auto 4.2 K/mm3 (1.3-6.7); Neutrophils Percent Auto 51.3 % (45.5-73.1); Nucleated Red Blood Cells Perc 0.4 % (0.0-0.2); Platelet Count Result 209 k/mm3 (150-375); Red Blood Count 3.69 M/mm3 (4.2-5.4); Red Cell Distribution Width 16.1 % (11.5-14.5); White Blood Count 8.1 K/mm3 (4.5-10.0)
[2023-08-26 07:34] LABS: Alanine Aminotransferase 40 U/L (6-35); Albumin Level 3.4 g/dL (3.5-5.1); Alkaline Phosphatase 62 U/L (38-126); Anion Gap 4 mmol/L (8-16); Aspartate Amino Transferase 82 U/L (14-36); Bilirubin,Total 0.5 mg/dL (0.2-1.3); Blood Urea Nitrogen 39 mg/dL (7-17); Calcium 8.9 mg/dL (8.4-10.2); Carbon Dioxide 27 mmol/L (22-30); Chloride 107 mmol/L (98-107); Estimated CRCL calculation 39 ml/min; Estimated Glomerular Filt Rate 53; Glucose 86 mg/dL (65-110); Magnesium 2.1 mg/dL (1.6-2.3); Potassium 4.3 mmol/L (3.4-5.0); Sodium 138 mmol/L (137-145)
[2023-08-26 08:00] VITALS: O2SAT 95
[2023-08-26 08:00] LABS: Glucose Point of Care 81 mg/dl (65-105)
[2023-08-26 08:10] VITALS: PULSE 70; RESP 16; O2SAT 94
[2023-08-26] MEDS: ALBUTEROL SULFATE (*SP) AEROSOL 1 PUFF 2 PUFF INHALATION (08:11)
[2023-08-26] MEDS: FLUTICASONE/UMECLIDIN/VILANTER 100-62.5-25 MCG ELLIPTA 1 PUFF INHALATION (08:11)
--- NOTE | 2023-08-26 08:51 | PM.DS ---
DS: Admitting Diagnosis Discharge Date 08/26/2023 Admitting Diagnosis COVID, chronic respiratory failure with hypoxia on home oxygen therapy, CKD stage 3, COPD, morbid obesity, LORENZO on CPAP, hypertension DS: Discharge Diagnosis Discharge Diagnosis (1) COVID: Code(s): U07.1 - COVID-19 Status: Acute (2) Bacterial pneumonia: Code(s): J15.9 - Unspecified bacterial pneumonia Status: Acute (3) Acute UTI: Code(s): N39.0 - Urinary tract infection, site not specified Status: Acute (4) Chronic respiratory failure with hypoxia, on home oxygen therapy: Code(s): J96.11 - Chronic respiratory failure with hypoxia; Z99.81 - Dependence on supplemental oxygen Status: Acute (5) Chronic kidney disease, stage 3: Code(s): N18.30 - Chronic kidney disease, stage 3 unspecified Status: Acute (6) Chronic obstructive pulmonary disease: Code(s): J44.9 - Chronic obstructive pulmonary disease, unspecified Status: Acute (7) Morbid obesity: Code(s): E66.01 - Morbid (severe) obesity due to excess calories Status: Acute (8) Obstructive sleep apnea on CPAP: Code(s): G47.33 - Obstructive sleep apnea (adult) (pediatric) Status: Acute (9) Hypertension: Code(s): I10 - Essential (primary) hypertension Status: Acute DS: Summary Hospital Course Reason for hospitalization: COVID and bacterial pneumonia with hypoxia, UTI Hospital Course: 08/21 H&P: This is a very pleasant 77-year-old female with chronic respiratory failure with hypoxia on p.r.n. oxygen, chronic obstructive pulmonary disease, coronary artery disease, congestive heart failure, sleep apnea, chronic kidney disease, anemia, type 2 diabetes mellitus, and other comorbidities who presented to the emergency department via EMS from home earlier today for evaluation of fever and cough. The patient provides the following history. The last several days she has been coughing and needing to wear her oxygen more frequently. Yesterday she started to run a fever and has some periods of mild confusion throughout the day. Her cough is productive of yellowish-colored phlegm. Appetite has been not great but she denies nausea, vomiting, and diarrhea. Her brother had similar symptoms last week. In the ED: Temperature is 102.5? F on arrival. Blood pressures have been stable. SpO2 has been in the upper 90s to 100 on 2 L nasal cannula which is what she uses at home. Labs were significant for WBC count of 7.8, hemoglobin 11.9, sodium 139, BUN 39, creatinine 1.60, CRP 3.3, procalcitonin 0.2. She was positive for SARS-CoV-2 by PCR. Chest x-ray showed extensive left-sided airspace disease. A subsequent chest CT showed no evidence for focal pneumonia (opacification on chest x-ray was felt to be due to artifact) and emphysema with superimposed chronic interstitial fibrosis. She was given albuterol nebulizer, 500 mg azithromycin, and 1 g ceftriaxone she is being admitted in this setting for further treatment 08/22:? Pt states she got Covid from her caregiver who is her brother. States she is not able to walk to far secondary to COPD and SOB prior to Covid.? States she uses a walker and a wheelchair.? States she is normally on oxygen, but only as needed and wears a CPAP at night which her family is supposed to be bringing.? C/o cough that is improved with tessalon perles and mucinex. Denies any SOB at rest. Vital signs stable and pt is afebrile.? Labwork shows BUN 35 with creat. 1.6 today.? Continues on Rocephin and azithromycin for the pneumonia and decadron for the Covid as she initially required increased oxygen use. Will order PT/OT for patient as she was weak at baseline. 08/23:? Patient is feeling a little bit better today.? She reports she is not quite as short of breath and she is much more alert.? Patient still on supplemental oxygen which she only uses p.r.n. at home.? She is using her CPAP at night.? Urine culture shows E coli, blood
[2023-08-26] MEDS: MONTELUKAST SODIUM 10 MG TABLET PO (10:08)
[2023-08-26] MEDS: FLUoxetine HCL 20 MG CAPSULE 60 MG PO (10:08)
[2023-08-26] MEDS: DEXAMETHASONE 2 MG TABLET 6 MG PO (10:08)
[2023-08-26] MEDS: PANTOPRAZOLE 40 MG TABLET PO (10:08)
[2023-08-26] MEDS: POTASSIUM CHLORIDE 10 MEQ ER TABLET PO (10:08)
[2023-08-26] MEDS: FAMOTIDINE 20 MG TABLET PO (10:08)
[2023-08-26] MEDS: COLCHICINE 0.6 MG TABLET PO (10:09)
[2023-08-26] MEDS: GABAPENTIN 300 MG CAPSULE PO (10:09)
[2023-08-26] MEDS: ENOXAPARIN 40 MG/0.4 ML SYRINGE SUB-Q (10:09)
[2023-08-26] MEDS: guaiFENesin 12 HR 600 MG TABCR PO (10:09)
[2023-08-26] MEDS: EMPAGLIFLOZIN 25 MG TABLET PO (10:09)
[2023-08-26] MEDS: AMOXICILLIN/CLAVULANATE K 875-125 MG TAB 1 TABLET PO (10:09)
[2023-08-26] MEDS: FLUTICASONE PROPIONATE 0.05% NA SPR 16 GM BTL (*BKC) 1 SPRAY NASAL (10:09)
[2023-08-26 12:20] LABS: Glucose Point of Care 152 mg/dl (65-105)
== END 2023-08-26 13:13 | disposition home or self-care (01) | DRG 177 ==
LOC: ANHED 10:10 → ANH3MEDSUR 11:47
PROVIDERS: Physician Assistant; Admitting Provider Student in an Organized Health Care Education/Training Program; Emergency Provider Emergency Medicine; PCP Family Medicine; Visit Provider Nurse Practitioner
DX: U07.1 COVID-19 (principal); J13 Pneumonia due to Streptococcus pneumoniae; N39.0 Urinary tract infection, site not specified; J96.11 Chronic respiratory failure with hypoxia; J44.0 Chronic obstructive pulmonary disease with (acute) lower respiratory infection; I13.0 Hypertensive heart and chronic kidney disease with heart failure and stage 1 through stage 4 chronic kidney disease, or unspecified chronic kidney disease; N18.30 Chronic kidney disease, stage 3 unspecified; I50.9 Heart failure, unspecified; B96.20 Unspecified Escherichia coli [E. coli] as the cause of diseases classified elsewhere; E66.01 Morbid (severe) obesity due to excess calories; Z68.38 Body mass index [BMI] 38.0-38.9, adult; G47.33 Obstructive sleep apnea (adult) (pediatric); I25.10 Atherosclerotic heart disease of native coronary artery without angina pectoris; E11.22 Type 2 diabetes mellitus with diabetic chronic kidney disease; M19.90 Unspecified osteoarthritis, unspecified site; E78.5 Hyperlipidemia, unspecified; H40.9 Unspecified glaucoma; Z96.653 Presence of artificial knee joint, bilateral; Z99.81 Dependence on supplemental oxygen; Z98.84 Bariatric surgery status; Z98.49 Cataract extraction status, unspecified eye; Z85.3 Personal history of malignant neoplasm of breast; Z87.891 Personal history of nicotine dependence; K21.9 Gastro-esophageal reflux disease without esophagitis
CPT/HCPCS: 36415; 71045; 71250; 80048; 80053; 80076; 81001; 82728; 82948; 83735; 84145; 84484; 85025; 85027; 85610; 86140; 87040; 87070; 87077; 87086; 87186; 87205; 87637; 87641; 93005; 93970; 94640; 96365; 96366; 96367; 96375; 96376; 97110; 97161; 97165; 97530; 97535; 99285; A9270; G0378; J0248; J0456; J0696; J1650; J1815; J8540